=== PATIENT | male | born 1995 | race Caucasian/White ===

== ENCOUNTER 2019-10-27 20:49 | Emergency (ER) | payer OTHER ==
[~2019-10-27] VITALS: Ht 172.7 cm; Wt 95.2 kg
--- OUTSIDE RECORDS SUMMARY | ~2019-10-27 | XMS | Encounter Summary ---
Demographics + + + | Address | [address] | | | [place] [address] | + + + | Home Phone | | + + + | Preferred Language | Unknown | + + + | Marital Status | Single | + + + | Sabianism Affiliation | 1009 | + + + | Race | Unknown | + + + | Ethnic Group | Unknown | + + + Author + + + | Author | [facility] | | | and [place] | + + + | Organization | [facility] | | | and [place] | + + + | Address | Unknown | + + + | Phone | Unavailable | + + + Support + + + + + | Name | Relationship | Address | Phone | + + + + + | Fatmata Arce | ECON | [address] | | | | | [place] [address] | | + + + + + | Bogdan Arce | ECON | Unknown | | + + + + + Care Team Providers + +------+ + | Care Driller'S Assistant Name | Role | Phone | + +------+ + PCP | Unavailable | + +------+ + Encounter Details +--------+ + + + + | Date | Type | Department | Care Team | Description | +--------+ + + + + | 06/18/ | Hospital | [facility] | Phillip Ely, | | | 1997 | Encounter | [facility] | MD [facility] Dept[facility] of | | | | | EMERGENCY CENTER | Emergency Medicine | | | | | [address] | [place] [address] | | | | | [place], [place] | [phone] | | | | | [address] | | | | | | [phone] | | | +--------+ + + + + Social History + +-------+ +--------+------+ | Tobacco Use | Types | Packs/Day | Years | Date | | | | | Used | | + +-------+ +--------+------+ | Never Assessed | | | | | + +-------+ +--------+------+ + + + | Sex Assigned at | Date Recorded | | | | + + + | Not on file | | + + + documented as of this encounter Plan of Treatment +--------+---------+ + + + | Date | Type | Specialty | Care Team | Description | +--------+---------+ + + + | 11/04/ | Office | Family Medicine | Davy Mosqueda, | | | 2019 | Visit | | [facility] [address] | | | | | [address] | | | | | | [place] | | | | | | [address] | | | | | | [phone] | | | | | | | | +--------+---------+ + + + | 12/01/ | Office | Pulmonology | Miguel Angel Mayer MD | | | 2019 | Visit | | [address] | | | | | | [place] | | | | | | [address] | | | | | | | | +--------+---------+ + + + documented as of this encounter Visit Diagnoses Not on filedocumented in this encounter"
--- OUTSIDE RECORDS SUMMARY | ~2019-10-27 | XMS | Clinical Summary ---
Demographics + + + | Address | [address] | | | [place] [address] | + + + | Home Phone | | + + + | Preferred Language | Unknown | + + + | Marital Status | Single | + + + | Buddhist Affiliation | NON | + + + | Race | White | + + + | Ethnic Group | Not or | + + + Author + + + | Organization | Unknown | + + + | Address | Unknown | + + + | Phone | Unavailable | + + + Care Team Providers + +------+ + | Care Busboy Name | Role | Phone | + +------+ + PCP | Unavailable | + +------+ + Source Comments [facility] is fully live on both [facility] and [facility] Allergies Not on File Medications Not on file Active Problems Not on file Social History + +-------+ +--------+------+ | Tobacco [...] on file | | + + + + + + + | Job Start Date | Occupation | Industry | + + + + | Not on file | Not on file | Not on file | + + + + + + + + | Travel History | Travel Start | Travel End | + + + + + + | No recent travel history available. | + + Last Filed Vital Signs Not on file Plan of Treatment + + + + + | Health Maintenance | Due Date | Last Done | Comments | + + + + + | Influenza (Flu) | | | | | vaccination (#1) | 9 | | | + + + + + | Pneumococcal | Aged Out | | No longer eligible | | vaccination | | | based on patient's | | | | | age to complete this | | | | | topic | + + + + + Results Not on filefrom Last 3 Months"
--- OUTSIDE RECORDS SUMMARY | ~2019-10-27 | XMS | Encounter Summary ---
Demographics + + + | Address | [address] | | | [place] [address] | + + + | Home Phone | | + + + | Preferred Language | Unknown | + + + | Marital Status | Single | + + + | Restorationism Affiliation | 1009 | + + + | Race | Unknown | + + + | Ethnic Group | Unknown | + + + Author + + + | Author | [facility] | | | and [place] | + + + | Organization | [facility] | | | and [...] | | | | | [place] [address] | | + + + + + | Bogdan Arce | ECON | Unknown | | + + + + + Care Team Providers + +------+ + | Care Grinder Operator Automatic Name | Role | Phone | + +------+ + PCP | Unavailable | + +------+ + Encounter Details +--------+ + + + + | Date | Type | Department | Care Team | Description | +--------+ + + + + | 05/04/ | Hospital | [facility] | | | | 1999 | Encounter | [facility] | | | | | | CENTER [address] | | | | | | [place] | | | | | | [address] | | | | | | [phone] | | | +--------+ + + + [...] | | 2019 | Visit | | [facility] [address] | | | | | | [address] | | | | | | [place] | | | | | | [address] | | | | | | [phone] | | | | | | | | +--------+---------+ + + + | 12/01/ | Office | Pulmonology | Miguel Angel Mayer MD | | | 2019 | Visit | | [facility] [address] | | | | | | [place] | | | | | | [address] | | | | | | | | +--------+---------+ + + + documented as of this encounter Visit Diagnoses Not on filedocumented in this encounter"
--- OUTSIDE RECORDS SUMMARY | ~2019-10-27 | XMS | Encounter Summary ---
Demographics + + + | Address | [address] | | | [place] [address] | + + + | Home Phone | | + + + | Preferred Language | Unknown | + + + | Marital Status | Single | + + + | Yazdanism Affiliation | [id number] | + + + | Race | Unknown | + + + | Ethnic Group | Unknown | + + + Author + + + | Author | [facility] | | | and [place] | + + + | Organization | [facility] | | | [...] | | | | | [place] [address] | | + + + + + | Bogdan Arce | ECON | Unknown | | + + + + + Care Team Providers + +------+ + | Care Energy Auditor Name | Role | Phone | + +------+ + PCP | Unavailable | + +------+ + Encounter Details +--------+ + + + + | Date | Type | Department | Care Team | Description | +--------+ + + + + | 07/05/ | Emergency | [facility] | AshwinRichardson DO | Acute nonintractable | | 2018 | | [place] | [address] | headache, | | | | [facility] | [address], | unspecified headache | | | | [address] | [place] [address] | type | | | | [place] | [phone] | | | | | [address] | | | | | | [phone] | | | +--------+ + + + [...] + + documented as of this encounter Last Filed Vital Signs + + + + + | Vital Sign | Reading | Time Taken | Comments | + + + + + | Blood Pressure | 116/70 | 07/05/2017 3:13 PM | | | | | PDT | | + + + + + | Pulse | 98 | 07/05/2017 3:13 PM | | | | | PDT | | + + + + + | Temperature | 36.7 C (98.1 F) | 07/05/2017 3:13 PM | | | | | PDT | | + + + + + | Respiratory Rate | 16 | 07/05/2017 3:13 PM | | | | | PDT | | + + + + + | Oxygen Saturation | - | - | | + + + + + | Inhaled Oxygen | - | - | | | Concentration | | | | + + + + + | Weight | 91.5 kg (201 lb 11.5 | 07/05/2017 3:13 PM | | | | oz) | PDT | | + + + + + | Height | 172.7 cm (5' 8") | 07/05/2017 3:13 PM | | | | | PDT | | + + + + + | Body Mass Index | 30.67 | 07/05/2017 3:13 PM | | | | | PDT | | + + + + + documented in this encounter Medications at Time of Discharge + + + +---------+ + + | Medication | Sig | Dispensed | Refills | Start | End Date | | | | | | Date | | + + + +---------+ + + | fluticasone | 1 spray by Each Nare | | 0 | 07/06/19 | | | (FLONASE) 50 | route daily for 10 | | | 18 | | | mcg/nasal spray | days. | | | | | + + + +---------+ + + documented as of this encounter ED Notes Gabbie Matt PA - 07/05/2017 12:57 PM PDT ED Provider Notes by Gabbie Matt PA-C at 07/05/17 1257 Author: Gabbie Matt PA-C Service: Emergency Department Author Type: Physician As sistant - Certified Filed: 07/05/17 1845 Date of Service: 07/05/17 1257 Status: Attested Belling Machine Operator: Gabbie Matt PA-C (Physician Stone Derrickman And Rigger - Certified) Cosigner: Richardson louis DO at 07/05/17 Attestation signed by Richardson Christopher DO at 07/05/17 252 I was personally available for consultation. We have discussed the case and I was involved in the medical decision making process. I have reviewed the charting and agree with the as sessment, treatment plan, and disposition of the patient as recorded by the P. Procedures [facility] EMERGENCY DEPARTMENT IN [place] History of Present Illness Patient Identification Armin Arce is a 22 y.o. male. Patient information was obtained from patient. History/Exam limitations: none. Patient presented to the Emergency Department by: Car Chief Complaint Chief Complaint Patient presents with Headache 8 days Patient is a 22 y.o. male with a history of concussion and family history of brain aneurysm s complains of headache. Onset of symptoms was the days ago, with a worsening course since t hat time. The symptoms are described to be of moderate severity. The patient describes the quality and location of the symptoms as the following: bilateral frontal bandlike tension he adache. Patient stated he felt he has a tension headache but this one has been consistent. Patient stated he notices his headache most when he is not at work or having anything else t o do. Rated pain 4/10. Care prior to arrival consisted of nothing. Patient reports that both his father and grandfather had brain aneurysms in her 30s. Patient denied his headache bein g setting onset or the worst headache of his life. Denied caffeine intake. Denied recent chi ropractic adjustments or trauma. The patient also complains of slight upper muscular neck pain. Patient also complains of lopez btle lightheadedness occasionally. Significant PMH includes: Family history of brain aneurysms. Concussion. See below. Denied head injury, visual changes, blurred vision, trauma, fall, tinnitus, hearing loss, r melany, fever, chills, neck stiffness. abdominal pain, nausea, vomiting, dysuria, hematuria, fr equency, urgency, urinary retention, diarrhea, constipation, hemoptysis, chest pain, pleurit ic chest pain, cough, shortness of breath, palpitations, bloody stool, bloody emesis. Past Medical History Diagnosis Date Asthma Allergy induced Concussion several Muscle tear History reviewed. No pertinent surgical history. Prior to Admission medications Not on File No Known Allergies Social History Social History Marital status: Single Spouse name: N/A Number of children: N/A Years of education: N/A Occupational History Not on file. Social History Main Topics Smoking status: Never Smoker Smokeless tobacco: Never Used Alcohol use No Drug use: No Sexual activity: No Other Topics Concern Not on file Social History Narrative Pt lives with Mother Fatmata Arce. Pt's father is Bogdan Arce. Pt has one sibling Tamera Arce (09/05/00). History reviewed. No pertinent family history. ROS Review of Systems Constitutional: Negative for: fever, chills, fatigue, sweats, weight loss, loss of appe tite Positive for: headache, lightheadedness (resolved) Eyes: Negative for: decreased vision, irritated eyes, change in vision Nose: Negative for: nosebleed, congestion Throat: Negative for: mouth sores, sore throat Cardiovascular/Respiratory: Negative for: chest pain, shortness of breath, cough Gastrointestinal: Negative for: abdominal pain, vomiting, diarrhea, black or bloody stools Genitourinary: Negative for: dysuria, hematuria, urinary problems, frequency Musculoskeletal: Positive for: neck pain Skin: Negative for: laceration or lesion Neuro and psych: Negative for: fainting, head injury, trouble walking, seizure Endocrine/Heme/Lymph: Negative for: swollen lymph nodes, easy bruising Physical Exam Vitals: 07/05/17 1513 BP: 116/70 Pulse: 98 Resp: 16 Temp: SpO2: 97% Vitals: 07/05/17 1300 07/05/17 1408 07/05/17 1513 BP: (!) 132/97 111/73 116/70 BP Location: Right upper arm Right upper arm Right upper arm Pulse: 98 87 98 Resp: 18 16 16 Temp: 98.1 F (36.7 C) TempSrc: Oral SpO2: 98% 98% 97% Weight: 91.5 kg (201 lb 11.5 oz) Height: 1.727 m (5' 8") Pulse Oximetry interpretation: Normal General Statement: Alert, oriented, cooperative and in no apparent distress Skin: Skin warm and dry, no rashes, lesions, ulcerations. Capillary refill is <2 seconds Head: Skull symmetrical without lesions. Scalp without tenderness or lesions. No temporal a rtery tenderness bilaterally. Eyes: Conjunctiva and sclera are clear. EOMs intact and full. Non-icteric. PERRL. Ears: Auricles no lesions, masses, or tenderness. Canals no erythema or discharge. TMs intact, light reflex and bony landmarks present. No hemotympanum. Nose and Sinuses: Nose normal with septum midline. Mucosa pink and moist, without discharge , lesions. No frontal or maxillary sinus tenderness. Mouth and Throat: Buccal mucosa pink and moist without lesions. Uvula midline and rises waqas nly. Pharynx without erythema, edema, or tonsillar enlargement. Neck: Symmetrical. Trachea midline. No lymphadenopathy. No neck stiffness or tenderness of spinous processes. Minimal tenderness to upper paraspinous cervical musculature. No meningis mus Chest/Lungs: Quiet, regular respirations. Clear to auscultation in all lung jones. No whee zes, rhonchi, rales, stridor. No retractions or use of accessory muscles. Heart/Peripheral Vasculature: Regular rate and rhythm. No murmurs noted. Lower extremities without edema or calf tenderness. Pulses 2+ bilaterally - radial Abdomen: Bowel sounds present in all quadrants. Soft, non-distended, non-tender. No rebound tenderness or guarding. No CVA tenderness. Musculoskeletal: Symmetric without erythema, edema, effusion, or deformity in upper and low er extremities. Full active ROM in upper and lower extremities. Muscle strength is 5/5 bila terally in upper and lower extremities. Neurovascularly intact bilaterally. Back: Symmetric without erythema or deformity. No tenderness to palpation of spinous proce sses or paraspinous musculature. Full active ROM of back. Neurological/Psych: Gait and stance are normal. CN II-XII intact with no focal deficits. D TRs are 2+ bilaterally - patellar. No sensory deficit. Cvoksk-nr-bfrs and mojk-mbgf-cnmf mo vements are fluid bilaterally. Rapid alternating movements are intact bilaterally in upper a nd lower extremities. Romberg testing is negative. Able to walk on tip toes and heels with n o difficulties. Genitourinary: Deferred Rectal: Deferred Medical Decision Making and Emergency Department Course ED Department Course 1257: Examined and spoke to the patient with a history of concussion and family history of brain aneurysms complains of headache. DDx was discussed with patient including but not limited to: Intracranial mass/hemorrhage, brain aneurysm, primary headaches including tension, migraine, or cluster, sinusitis, among others. Due to the patient's family history of brain aneurysms I believe a CT is warranted. Discussed a plan of labs and CTA to r/o serious or life threatening conditions. I discussed with the patient the risks versus benefits of the CT scan. He indicated understanding and c onsented to CT scan. He stated he did not come to the emergency Department for his symptoms he stated he was concerned because of his family history of brain aneurysms. Will give Tylen ol, Benadryl, IV fluids, Reglan for pain relief. 1355: Labs resulted. No acute abnormalities. 1453: CT resulted. 1. No aneurysm or acute/active vascular lesion 2. 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 Left maxillary sinus disease which may be contributory to some symptoms/headache Patient is not experiencing any dysphasia. I consulted Dr. Christopher in regards to this patient and he is in agreement with plan. 1510: Patient on reevaluation stated he is feeling much better. Discussed diagnostic and la b tests with patient in detail. Discussed the clinical impression with the patient and answe red all questions and concerns. Patient indicated understanding. Discussed symptomatic care . Discussed with the patient what would necessitate a return to the ED. Patient was in agre ement with treatment and discharge plan. Thank you Dr. Christopher for your consult with this patient. Records Reviewed Nursing notes. Labs & Radiology Results Laboratory Evaluation Results Procedure Component Value Ref Range Date/Time Comprehensive metabolic panel [[id number]] Collected: 07/05/17 1332 Order Status: Completed Specimen: Blood Updated: 07/05/17 1355 SODIUM 141 135 - 145 mmol/L POTASSIUM 4.2 3.5 - 4.9 mmol/L CHLORIDE 103 99 - 109 mmol/L CO2 29 23 - 32 mmol/L ANION GAP AGAP 13 5 - 20 mmol/L GLUCOSE 82 65 - 99 mg/dL BUN 13 8 - 25 mg/dL CREATININE 1.08 0.70 - 1.30 mg/dL BUN/CREAT 12 CALCIUM 9.1 8.5 - 10.5 mg/dL TOTAL PROTEIN 7.6 6.3 - 8.2 g/dL Albumin 3.9 3.6 - 5.0 g/dL GLOBULIN 3.7 1.3 - 4.9 g/dL A/G 1.1 1.0 - 2.4 TBIL 0.8 0.1 - 1.5 mg/dL ALK PHOS 94 35 - 115 U/L AST 22 10 - 45 U/L ALT 54 10 - 65 U/L EGFR >60 >60 mL/min/1.73m2 CBC with differential [[id number]] (Abnormal) Collected: 07/05/17 1332 Order Status: Completed Specimen: Blood Updated: 07/05/17 1341 WBC 5.89 3.80 - 11.00 K/uL RBC 5.29 4.20 - 5.70 M/uL HGB 16.7 13.2 - 17.0 g/dL HCT 48.8 39.0 - 50.0 % MCV 92.2 80.0 - 100.0 fl MCH 31.6 27.0 - 34.0 pg MCHC 34.3 32.0 - 35.5 g/dL RDW SD 41.1 37 - 53 fl PLT 217 150 - 400 K/uL MPV 7.5 fl DIFF TYPE AUTOMATED NEUTROPHILS 48.53 % LYMPHOCYTES 34.41 % MONOCYTES 7.64 % EOSINOPHILS 8.68 % BASOPHILS 0.74 % NEUTROPHILS ABS 2.86 1.90 - 7.40 K/uL LYMPHOCYTES ABS 2.03 1.00 - 3.90 K/uL MONOCYTES ABS 0.45 0.00 - 0.80 K/uL EOSINOPHILS ABS 0.51 (H) 0.00 - 0.50 K/uL BASOPHILS ABS 0.04 0.00 - 0.10 K/uL Radiology and EKG Evaluation Imaging Results CTA Head and Neck (Final result) Result time 07/05/17 14:53:46 Final result by Dhruv Rodriguez MD (07/05/17 14:53:46) Impression: 1. No aneurysm or acute/active vascular lesion 2. 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 Left maxillary sinus disease which may be contributory to some symptoms/headache Narrative: HISTORY: 22 year-old male with headache. Family history of aneurysms. TECHNIQUE: CT angiogram of head and neck post the uneventful administration of 100cc of Iso kassandra 370. Multiplanar MIPS, sagittal and coronal reconstructions through the major vascular t erritories and branch vessels of the head, with reconstructions of the otoe-[place] of Lilly. Pre contrast and delayed venous phase imaging through the head. Automatic exposure control for purposes of dose reduction was performed as per protocol at this institution Prior examination : none similar FINDINGS: Transition Social Worker : Is noncontributory findings, but there is a fixation plate of the mid diaphysis of the right humerus Precontrast and delayed post contrast imaging through the head reveals no intracranial lesi on, mass effect or hydrocephalus. No hemorrhage. Postcontrast imaging demonstrates normal opacification major dural sinuses and parenchyma-w ithout abnormally enhancing dural or parenchymal lesion Bone windows: Near-complete opacification of the left maxillary sinus by a mildly extensive soft tissue. The nasal septum though tracks to the left which is probably congenital. Mild mucosal thickening of ethmoid air cells. The other paranasal sinuses are clear and normally pneumatized No calvarial lesion or fracture. Middle ears and mastoids-auditory canals-all clear Cervical spine is normal Lung apices are clear. Incidental notation made of an aberrant right subclavian artery behind the esophagus Soft tissue windows of the neck reveal a normal midline airway. Normal thyroid. No adenopat hy by size criteria. Only subthreshold lymph tissue in common and symmetric distributions CT ANGIOGRAM DEMONSTRATES: Three-vessel configuration the arch with aberrant right subclavi an artery with local mass effect in the esophagus. No subclavian or vertebral artery stenosi s at the origin. The bilateral internal and carotid arteries are symmetric and normal. 0% stenosis by NASCET Intracranial circulation reveals symmetry and wide patency of the carotid siphons. Slightly left dominant vertebral basilar system without evidence of aneurysm. Normal branch vessels. Small bilateral posterior communicating arteries are both intact. The bilateral M1 vessels and arborizations are normal without aneurysm, vascular cutoff sig n or lesion. No stenosis. The A1 and A2 segments are symmetric and there is anterior communi cation demonstrated Diagnosis & Disposition ED Diagnosis Final diagnosis Acute nonintractable headache, unspecified headache type The following medications were given to the patient while in the Emergency Department Medications sodium chloride (PF) 0.9 % flush 10 mL (not administered) sodium chloride (bolus) 0.9 % 1,000 mL (0 mLs Intravenous Stopped 07/05/17 1409) acetaminophen (TYLENOL) tablet 1,000 mg (1,000 mg Oral Given 07/05/17 1323) metoclopramide (REGLAN) injection 10 mg (10 mg Intravenous Given 07/05/17 1332) diphenhydrAMINE (BENADRYL) injection 25 mg (25 mg Intravenous Given 07/05/17 1332) iopamidol (ISOVUE-370) 76 % injection 100 mL (100 mLs Intravenous Given 07/05/17 1426) Disposition: ED Disposition ED Disposition Condition Comment Discharge Good Follow-up Information Follow up With Specialties Details Why Contact Info [facility] MD Joey Schedule an appointment as soon as possible for a visit [address] [facility] [address] [facility] Emergency Department in [place] Emergency Medicine Go to If symptoms worsen [address] [facility] [address] Discharge Medications: There are no discharge medications for this patient. This document has been prepared with a voice recognition system. The possibility of "sound alike" excel vba developer errors, addition and/or deletions may occur. If there is any question p lease contact the author of the document. Gabbie Matt PA-C 07/05/17 4326 Richardson Christopher DO 07/05/17 0091 documented in thi s encounter Plan of Treatment +--------+---------+ + + + | Date | Type | Specialty | Care Team | Description | +--------+---------+ + + + | 11/04/ | Office | Family Medicine | Davy Mosqueda, | | | 2019 | Visit | | [employer] [employer] [address] | | | | | | [address] | | | | | | [place] | | | | | | [address] | | | | | | [phone] | | | | | | | | +--------+---------+ + + + | 12/01/ | Office | Pulmonology | Miguel Angel Mayer MD | | | 2019 | Visit | | [address] | | | | | | [place] | | | | | | [address] | | | | | | | | +--------+---------+ + + + documented as of this encounter Procedures + +--------+ + + + | Procedure Name | Priori | Date/Time | Associated Diagnosis | Comments | | | ty | | | | + +--------+ + + + | CT ANGIOGRAM HEAD | Routin | 07/05/2017 | | Results for this | | NECK W CONTRAST | e | 2:37 PM | | procedure are in the | | | | PDT | | results section. | + +--------+ + + + | EXTERNAL LAB: CBC | Routin | 07/05/2017 | | Results for this | | | e | 1:32 PM | | procedure are in the | | | | PDT | | results section. | + +--------+ + + + | COMPREHENSIVE | Routin | 07/05/2017 | | Results for this | | METABOLIC PANEL | e | 1:32 PM | | procedure are in the | | | | PDT | | results section. | + +--------+ + + + documented in this encounter Results CT Angiogram Head and Neck w Contrast (07/05/2017 2:37 PM PDT) + + | Specimen | + + | | + + + + + | Impressions | Performed At | + + + | 1. No aneurysm or acute/active vascular lesion 2. Angiogram | | | reveals an aberrant right subclavian artery which could be associated | | | with dysphagia given the mass effect and esophagus 3. Left | | | maxillary sinus disease which may be contributory to some | | | symptoms/headache | | + + + + + + | Narrative | Performed At | + + + | HISTORY: 22 year-old male with headache. Family history of | | | aneurysms. TECHNIQUE: CT angiogram of head and neck post the | | | uneventful administration of 100cc of Isovue 370. Multiplanar MIPS, | | | sagittal and coronal reconstructions through the major vascular | | | territories and branch vessels of the head, with reconstructions of | | | the otoe-[place] of Lilly. Precontrast and delayed venous phase imaging | | | through the head. Automatic exposure control for purposes of dose | | | reduction was performed as per protocol at this institution Prior | | | examination : none similar FINDINGS: Transition Social Worker : Is | | | noncontributory findings, but there is a fixation plate of the mid | | | diaphysis of the right humerus Precontrast and delayed post | | | contrast imaging through the head reveals no intracranial lesion, mass | | | effect or hydrocephalus. No hemorrhage. Postcontrast imaging | | | demonstrates normal opacification major dural sinuses and | | | parenchyma-without abnormally enhancing dural or parenchymal lesion | | | Bone windows: Near-complete opacification of the left maxillary | | | sinus by a mildly extensive soft tissue. The nasal septum though | | | tracks to the left which is probably congenital. Mild mucosal | | | thickening of ethmoid air cells. The other paranasal sinuses are | | | clear and normally pneumatized No calvarial lesion or fracture. | | | Middle ears and mastoids-auditory canals-all clear Cervical spine | | | is normal Lung apices are clear. Incidental notation made of | | | an aberrant right subclavian artery behind the esophagus Soft | | | tissue windows of the neck reveal a normal midline airway. Normal | | | thyroid. No adenopathy by size criteria. Only subthreshold lymph | | | tissue in common and symmetric distributions CT ANGIOGRAM | | | DEMONSTRATES: Three-vessel configuration the arch with aberrant right | | | subclavian artery with local mass effect in the esophagus. No | | | subclavian or vertebral artery stenosis at the origin. The | | | bilateral internal and carotid arteries are symmetric and normal. 0% | | | stenosis by NASCET Intracranial circulation reveals symmetry and | | | wide patency of the carotid siphons. Slightly left dominant vertebral | | | basilar system without evidence of aneurysm. Normal branch vessels. | | | Small bilateral posterior communicating arteries are both intact. | | | The bilateral M1 vessels and arborizations are normal without | | | aneurysm, vascular cutoff sign or lesion. No stenosis. The A1 and A2 | | | segments are symmetric and there is anterior communication | | | demonstrated | | + + + + + | Procedure Note | + + | Sohan Pleitez Conversion - 10/28/2018 5:56 AM PDT HISTORY: 22 year-old male with | | headache. Family history of aneurysms. TECHNIQUE: CT angiogram of head and neck post the | | uneventful administration of 100cc of Isovue 370. Multiplanar MIPS, sagittal and | | coronal reconstructions through the major vascular territories and branch vessels of the | | head, with reconstructions of the otoe-[place] of Lilly. Precontrast and delayed venous | | phase imaging through the head. Automatic exposure control for purposes of dose | | reduction was performed as per protocol at this institution Prior examination : none | | similar FINDINGS: Transition Social Worker : Is noncontributory findings, but there is a fixation plate of | | the mid diaphysis of the right humerus Precontrast and delayed post contrast imaging | | through the head reveals no intracranial lesion, mass effect or hydrocephalus. No | | hemorrhage. Postcontrast imaging demonstrates normal opacification major dural sinuses | | and parenchyma-without abnormally enhancing dural or parenchymal lesion Bone windows: | | Near-complete opacification of the left maxillary sinus by a mildly extensive soft | | tissue. The nasal septum though tracks to the left which is probably congenital. Mild | | mucosal thickening of ethmoid air cells. The other paranasal sinuses are clear and | | normally pneumatized No calvarial lesion or fracture. Middle ears and mastoids-auditory | | canals-all clear Cervical spine is normal Lung apices are clear. Incidental notation | | made of an aberrant right subclavian artery behind the esophagus Soft tissue windows of | | the neck reveal a normal midline airway. Normal thyroid. No adenopathy by size criteria. | | Only subthreshold lymph tissue in common and symmetric distributions CT ANGIOGRAM | | DEMONSTRATES: Three-vessel configuration the arch with aberrant right subclavian artery | | with local mass effect in the esophagus. No subclavian or vertebral artery stenosis at | | the origin. The bilateral internal and carotid arteries are symmetric and normal. 0% | | stenosis by NASCET Intracranial circulation reveals symmetry and wide patency of the | | carotid siphons. Slightly left dominant vertebral basilar system without evidence of | | aneurysm. Normal branch vessels. Small bilateral posterior communicating arteries are | | both intact. The bilateral M1 vessels and arborizations are normal without aneurysm, | | vascular cutoff sign or lesion. No stenosis. The A1 and A2 segments are symmetric and | | there is anterior communication demonstrated IMPRESSION: 1. No aneurysm or acute/active | | vascular lesion 2. Angiogram reveals an aberrant right subclavian artery which could be | | associated with dysphagia given the mass effect and esophagus 3. Left maxillary sinus | | disease which may be contributory to some symptoms/headache | |The bilateral internal and carotid arteries are symmetric and normal. 0% stenosis by NASCET | | | |Intracranial circulation reveals symmetry and wide patency of the carotid siphons. Slightly left dominant vertebral basilar system without evidence of aneurysm. Normal branch vessels. Small bilateral posterior communicating arteries are both intact. | | | |The bilateral M1 vessels and arborizations are normal without aneurysm, vascular cutoff sig n or lesion. No stenosis. The A1 and A2 segments are symmetric and there is anterior communi cation demonstrated | | | |IMPRESSION: | | | |1. No aneurysm or acute/active vascular lesion | | | |2. 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 Left maxillary sinus disease which may be contributory to some symptoms/headache | | | | | | | | | | | + + External Lab: [facility] (07/05/2017 1:32 PM PDT) + + + + + + | Component | Value | Ref Range | Performed | Pathologist | | | | | At | Signature | + + + + + + | WBC | 5.89 | 3.80 - 11.00 | EXTERNAL | | | | | K/uL | LAB | | + + + + + + | Non- | 5.29 | 4.20 - 5.70 | EXTERNAL | | | Red Blood | | M/uL | LAB | | | Cells | | | | | | Counted | | | | | + + + + + + | Hemoglobin | 16.7 | 13.2 - 17.0 | EXTERNAL | | | | | g/dL | LAB | | + + + + + + | Hematocrit, | 48.8 | 39.0 - 50.0 % | EXTERNAL | | | POC | | | LAB | | + + + + + + | MCV | 92.2 | 80.0 - 100.0 fl | EXTERNAL | | | | | | LAB | | + + + + + + | MCH | 31.6 | 27.0 - 34.0 pg | EXTERNAL | | | | | | LAB | | + + + + + + | MCHC | 34.3 | 32.0 - 35.5 | EXTERNAL | | | | | g/dL | LAB | | + + + + + + | RDW-CV | 41.1 | 37 - 53 fl | EXTERNAL | | | | | | LAB | | + + + + + + | Platelet | 217 | 150 - 400 K/uL | EXTERNAL | | | Count | | | LAB | | | Plasma | | | | | + + + + + + | MPV | 7.5 | fl | EXTERNAL | | | | | | LAB | | + + + + + + | Differentia | AUTOMATED | | EXTERNAL | | | l Type | | | LAB | | + + + + + + | % Segmented | 48.53 | % | EXTERNAL | | | | | | LAB | | | Neutrophils | | | | | + + + + + + | % | 34.41 | % | EXTERNAL | | | Lymphocytes | | | LAB | | + + + + + + | % Monocytes | 7.64 | % | EXTERNAL | | | | | | LAB | | + + + + + + | % | 8.68 | % | EXTERNAL | | | Eosinophils | | | LAB | | + + + + + + | % Basophils | 0.74 | % | EXTERNAL | | | | | | LAB | | + + + + + + | Absolute | 2.86 | 1.90 - 7.40 | EXTERNAL | | | Segmented | | K/uL | LAB | | | Neutrophils | | | | | + + + + + + | Absolute | 2.03 | 1.00 - 3.90 | EXTERNAL | | | Lymphocytes | | K/uL | LAB | | + + + + + + | Absolute | 0.45 | 0.00 - 0.80 | EXTERNAL | | | Monocytes | | K/uL | LAB | | + + + + + + | Absolute | 0.51 (H) | 0.00 - 0.50 | EXTERNAL | | | Eosinophils | | K/uL | LAB | | + + + + + + | Absolute | 0.04Comment: Testing | 0.00 - 0.10 | EXTERNAL | | | Basophils | performed at [facility], [address] | | | | [address], | | | | | | [place] [id number] | | | | + + + + + + + + | Specimen | + + | Blood specimen | | (specimen) | + + + +---------+ + + | Performing | Address | City/State/Zipcode | Phone Number | | Organization | | | | + +---------+ + + | EXTERNAL LAB | | | | + +---------+ + + Comprehensive Metabolic Panel (07/05/2017 1:32 PM PDT) + + + + + + | Component | Value | Ref Range | Performed | Pathologist | | | | | At | Signature | + + + + + + | Na | 141 | 135 - 145 | EXTERNAL | | | | | mmol/L | LAB | | + + + + + + | K | 4.2 | 3.5 - 4.9 | EXTERNAL | | | | | mmol/L | LAB | | + + + + + + | Cl | 103 | 99 - 109 mmol/L | EXTERNAL | | | | | | LAB | | + + + + + + | CO2 | 29 | 23 - 32 mmol/L | EXTERNAL | | | | | | LAB | | + + + + + + | Anion Gap | 13 | 5 - 20 mmol/L | EXTERNAL | | | | | | LAB | | + + + + + + | Glucose, | 82 | 65 - 99 mg/dL | EXTERNAL | | | Fasting | | | LAB | | + + + + + + | BUN | 13 | 8 - 25 mg/dL | EXTERNAL | | | | | | LAB | | + + + + + + | Creatinine | 1.08 | 0.70 - 1.30 | EXTERNAL | | | | | mg/dL | LAB | | + + + + + + | BUN/Creatin | 12 | | EXTERNAL | | | ine Ratio | | | LAB | | + + + + + + | Calcium | 9.1 | 8.5 - 10.5 | EXTERNAL | | | | | mg/dL | LAB | | + + + + + + | Protein, | 7.6 | 6.3 - 8.2 g/dL | EXTERNAL | | | Total | | | LAB | | + + + + + + | Albumin | 3.9 | 3.6 - 5.0 g/dL | EXTERNAL | | | | | | LAB | | + + + + + + | Globulin | 3.7 | 1.3 - 4.9 g/dL | EXTERNAL | | | | | | LAB | | + + + + + + | A/G Ratio | 1.1 | 1.0 - 2.4 | EXTERNAL | | | | | | LAB | | + + + + + + | Bilirubin | 0.8 | 0.1 - 1.5 mg/dL | EXTERNAL | | | Total | | | LAB | | + + + + + + | ALP, | 94 | 35 - 115 U/L | EXTERNAL | | | External | | | LAB | | + + + + + + | AST | 22 | 10 - 45 U/L | EXTERNAL | | | | | | LAB | | + + + + + + | ALT | 54 | 10 - 65 U/L | EXTERNAL | | | | | | LAB | | + + + + + + | Estimated | >60Comment: GFR <60: | mL/min/1.73m2 | EXTERNAL | | | GFR | CHRONIC KIDNEY DISEASE, | | LAB | | | | IF FOUND OVER A 3 MONTH | | | | | | PERIOD.GFR <15: KIDNEY | | | | | | FAILURE.FOR | | | | | | AMERICANS, MULTIPLY THE | | | | | | CALCULATED GFR BY | | | | | | 1.210.Testing performed | | | | | | at [facility], [address] | [address] [place] | | | | | | [id number] | | | | + + + + + + + + | Specimen | + + | Blood specimen | | (specimen) | + + + +---------+ + + | Performing | Address | City/State/Zipcode | Phone Number | | Organization | | | | + +---------+ + + | EXTERNAL LAB | | | | + +---------+ + + documented in this encounter Visit Diagnoses + + | Diagnosis | + + | Acute nonintractable headache, unspecified headache type | + + documented in this encounter
--- OUTSIDE RECORDS SUMMARY | ~2019-10-27 | XMS | Encounter Summary ---
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 LABORATORY | | + + + + + + | Hematocrit | 35.0 (L) | 37.0 - 49.0 % | [facility] | | | | [facility] | | | | | [facility] | | | | | | [facility] | | | | | | [facility]ENTER | | | | | | LABORATORY | | + + + + + + | MCV | 91.6 | 78.0 - 98.0 fL | [facility] | | | | | | [facility] | | | | | | [facility] | | | | | | [facility] | | | | | | CENTER | | | | | | LABORATORY | | + + + + + + | MCH | 31.3 | 25.0 - 35.0 pg | [facility] | | | | [facility] | | | | | [facility] | | | | | | [facility] | | | | | | [facility]ENTER | | | | | | LABORATORY | | + + + + + + | MCHC | 34.2 | 31.0 - 37.0 | [facility] | | | | | g/dL | [facility] | | | | | | [facility] | | | | | | [facility] | | | | | | CENTER | | | | | | LABORATORY | | + + + + + + | RDW-CV | 12.5 | 11.0 - 14.5 % | [facility] | | | | | [facility] | | | | | [facility] | | | | | | [facility] | | | | | | [facility]ENTER | | | | | | LABORATORY | | + + + + + + | Platelet | 519 (H) | 150 - 450 K/uL | [facility] | | | Count | | | [facility] | | | | | | [facility] | | | | | | [facility]ICAL | | | | | | CENTER | | | | | | LABORATORY | | + + + + + + + + | Specimen | + + | | + + + + + + + | Performing | Address | City/State/Zipcode | Phone Number | | Organization | | | | + + + + + | [facility] | [address] | [place] [address] | | | [facility] | | | | | LABORATORY | | | | + + + + + | [facility] | | | | | [facility] | | | | | LAB[facility]ATORY | | | | + + + + + Sedimentation Rate (09/29/2011 6:23 AM PDT) + +--------+ + + + | Component | Value | Ref Range | Performed | Pathologist | | | | | At | Signature | + +--------+ + + + | Erythrocyte | 64 (H) | 0 - 10 mm/h | [facility] | | | | [facility] | | | Sedimentati | | | HEART | | | on Rate | | | MEDICAL | | | | | | CENTER | | | | | | LABORATORY | | + +--------+ + + + + + | Specimen | + + | | + + + + + + + | Performing | Address | City/State/Zipcode | Phone Number | | Organization | | | | + + + + + | [facility] | [address] | [place] [address] | | | [facility] | | | | | LABORATORY | | | | + + + + + | [facility] | | | [facility] | | | | | LAB[facility]ORY | | | | + + + + + Retic Count (09/29/2011 6:23 AM PDT) + +-------+ + + + | Component | Value | Ref Range | Performed | Pathologist | | | | | At | Signature | + +-------+ + + + | % | 1.0 | 0.4 - 2.7 % | [facility] | | | Reticulocyt | | | [facility] | | | e Count | | | HEART | | | | | | MEDICAL | | | | | | CENTER | | | | | | LABORATORY | | + +-------+ + + + | Absolute | 38 | 16 - 123 K/uL | [facility] | | | Reticulocyt | | | [facility] | | | e Count | | | HEART | | | | | | MEDICAL | | | | | | CENTER | | | | | | LABORATORY | | + +-------+ + + + | Immature | 0.39 | 0.17 - 0.43 | [facility] | | | Reticulocyt | | | [facility] | | | e Fraction | | | HEART | | | | | | MEDICAL | | | | | | CENTER | | | | | | LABORATORY | | + +-------+ + + + + + | Specimen | + + | | + + + + + + + | Performing | Address | City/State/Zipcode | Phone Number | | Organization | | | | + + + + + | [facility] | [address] | [place] [address] | | | [facility] | | | | | LABORATORY | | | | + + + + + | [facility] | | | | | [facility] | | | | | LAB[facility]ATORY | | | | + + + + + CBC with Differential (09/29/2011 6:23 AM PDT) + + + + + + | Component | Value | Ref Range | Performed | Pathologist | | | | | At | Signature | + + + + + + | White Blood | 5.2 | 4.5 - 11.0 K/uL | [facility] | | | Cells | | | [facility] | | | | | | [facility] | | | | | | MEDICAL | | | | | | CENTER | | | | | | LABORATORY | | + + + + + + | Red Blood | 3.71 (L) | 4.50 - 5.30 | [facility] | | | Cells | | M/uL | [facility] | | | | | | HE[facility] | | | | | | MEDICAL | | | | | | CENTER | | | | | | LABORATORY | | + + + + + + | Hemoglobin | 11.5 (L) | 13.0 - 16.0 | [facility] | | | | | g/dL | [facility] | | | | | | [facility] | | | | | | MEDICAL | | | | | | CENTER | | | | | | LABORATORY | | + + + + + + | Hematocrit | 34.6 (L) | 37.0 - 49.0 % | [facility] | | | | | | [facility] | | | | | | [facility] | | | | | | MED[facility] | | | | | | CENTER | | | | | | LABORATORY | | + + + + + + | MCV | 93.4 | 78.0 - 98.0 fL | [facility] | | | | | | [facility] | | | | | | [facility] | | | | | | MED[facility] | | | | | | CENTER | | | | | | LABORATORY | | + + + + + + | MCH | 30.9 | 25.0 - 35.0 pg | [facility] | | | | | | [facility] | | | | | | [facility] | | | | | | MEDICAL | | | | | | CENTER | | | | | | LABORATORY | | + + + + + + | MCHC | 33.1 | 31.0 - 37.0 | [facility] | | | | | g/dL | [facility] | | | | | | HE[facility] | | | | | | MEDICAL | | | | | | CENTER | | | | | | LABORATORY | | + + + + + + | RDW-CV | 12.5 | 11.0 - 14.5 % | [facility] | | | | | | [facility] | | | | | | [facility] | | | | | | MEDICAL | | | | | | CENTER | | | | | | LABORATORY | | + + + + + + | Platelet | 492 (H) | 150 - 450 K/uL | [facility] | | | Count | | | [facility] | | | | | | HE[facility] | | | | | | MEDICAL | | | | | | CENTER | | | | | | LABORATORY | | + + + + + + | % | 44.0 | 40.0 - 74.0 % | [facility] | | | Neutrophils | | | [facility] | | | | | | HE[facility] | | | | | | MEDICAL | | | | | | CENTER | | | | | | LABORATORY | | + + + + + + | % | 40.7 | 20.0 - 50.0 % | [facility] | | | Lymphocytes | | | [facility] | | | | | | HE[facility] | | | | | | MEDICAL | | | | | | CENTER | | | | | | LABORATORY | | + + + + + + | % Monocytes | 7.0 | 1.0 - 9.0 % | [facility] | | | | | | [facility] | | | | | | [facility] | | | | | | MEDICAL | | | | | | CENTER | | | | | | LABORATORY | | + + + + + + | % | 7.6 (H) | 0.0 - 7.0 % | [facility] | | | Eosinophils | | | [facility] | | | | | | HE[facility] | | | | | | MEDICAL | | | | | | CENTER | | | | | | LABORATORY | | + + + + + + | % Basophils | 0.7 | 0.0 - 2.0 % | [facility] | | | | | | [facility] | | | | | | [facility] | | | | | | MEDICAL | | | | | | CENTER | | | | | | LABORATORY | | + + + + + + | Absolute | 2.29 | 1.80 - 8.00 | [facility] | | | Neutrophils | | K/uL | [facility] | | | | | | HE[facility] | | | | | | MEDICAL | | | | | | CENTER | | | | | | LABORATORY | | + + + + + + | Absolute | 2.12 | 1.20 - 5.20 | [facility] | | | Lymphocytes | | K/uL | [facility] | | | | | | HEART | | | | | | MEDICAL | | | | | | CENTER | | | | | | LABORATORY | | + + + + + + | Absolute | 0.37 | 0.20 - 0.60 | [facility] | | | Monocytes | | K/uL | [facility] | | | | | | HEART | | | | | | MEDICAL | | | | | | CENTER | | | | | | LABORATORY | | + + + + + + | Absolute | 0.40 | 0.00 - 0.50 | [facility] | | | Eosinophils | | K/uL | [facility] | | | | | | HE[facility] | | | | | | MEDICAL | | | | | | CENTER | | | | | | LABORATORY | | + + + + + + | Absolute | 0.04 | 0.00 - 0.10 | [facility] | | | Basophils | | K/uL | [facility] | | | | | | HEART | | | | | | MEDICAL | | | | | | CENTER | | | | | | LABORATORY | | + + + + + + | Differentia | Automated Differential | | [facility] | | | l Type | verified by slide | | [facility] | | | | review. | | HEART | | | | | | MEDICAL | | | | | | CENTER | | | | | | LABORATORY | | + + + + + + | RBC | Normal | | [facility] | | | Morphology | | | [facility] | | | | | | HEART | | | | | | MEDICAL | | | | | | CENTER | | | | | | LABORATORY | | + + + + + + | WBC | Normal | | [facility] | | | Morphology | | | [facility] | | | | | | HEART | | | | | | MEDICAL | | | | | | CENTER | | | | | | LABORATORY | | + + + + + + | Platelet | Increased | | [facility] | | | Morphology | | | [facility] | | | | | | HEART | | | | | | MEDICAL | | | | | | CENTER | | | | | | LABORATORY | | + + + + + + + + | Specimen | + + | | + + + + + + + | Performing | Address | City/State/Zipcode | Phone Number | | Organization | | | | + + + + + | [facility] | [address] [place] | [place] [address] | | | [facility] | | | | | LABORATORY | | | | + + + + + | [facility] | | | | | [facility] | | | | | LABORATORY | | | | + + + + + C-Reactive Protein (09/29/2011 6:23 AM PDT) + + + + + + | Component | Value | Ref Range | Performed | Pathologist | | | | | At | Signature | + + + + + + | CRP | 3.7 (H)Comment: This CRP | 0.0 - 1.5 mg/dL | [facility] | | | | assay is useful as a | | [facility] | | | | marker of acute | | HEART | | | | inflammation. For | | MEDICAL | | | | cardiac risk | | CENTER | | | | stratification order | | LABORATORY | | | | High Sensitive CRP, | | | | | | Order Code HCRP. | | | | + + + + + + + + | Specimen | + + | | + + + + + + + | Performing | Address | City/State/Zipcode | Phone Number | | Organization | | | | + + + + + | [facility] | [address] | [place] [address] | | | [facility] | | | | | LABORATORY | | | | + + + + + | [facility] | | | | | [facility] | | | | | LABORATORY | | | | + + + + + Comprehensive Metabolic Panel (09/29/2011 6:23 AM PDT) + + + + + + | Component | Value | Ref Range | Performed | Pathologist | | | | | At | Signature | + + + + + + | Na | 140 | 135 - 145 | [facility] | | | | | mmol/L | [facility] | | | | | | HEART | | | | | | MEDICAL | | | | | | CENTER | | | | | | LABORATORY | | + + + + + + | K | 4.2 | 3.5 - 5.0 | [facility] | | | | | mmol/L | [facility] | | | | | | HEART | | | | | | MEDICAL | | | | | | CENTER | | | | | | LABORATORY | | + + + + + + | Cl | 103 | 99 - 109 mmol/L | [facility] | | | | | | [facility] | | | | | | HEART | | | | | | MEDICAL | | | | | | CENTER | | | | | | LABORATORY | | + + + + + + | CO2 | 28 | 21 - 28 mmol/L | [facility] | | | | | | [facility] | | | | | | HEART | | | | | | MEDICAL | | | | | | CENTER | | | | | | LABORATORY | | + + + + + + | Glucose | 116 (H)Comment: [place] | 65 - 99 mg/dL | [facility] | | | | Diabetes Association | | [facility] | | | | diagnostic categories | | HEART | | | | for non adults: | | MEDICAL | | | | Impaired fasting | | CENTER | | | | glucose 100 to 125 | | LABORATORY | | | | mg/dL. A fasting | | | | | | glucose result of 126 | | | | | | mg/dL or greater | | | | | | indicates diabetes if | | | | | | the abnormality is | | | | | | confirmed on a | | | | | | subsequent day. A | | | | | | random glucose result of | | | | | | greater than 200 mg/dL | | | | | | indicates diabetes if | | | | | | the abnormality is | | | | | | confirmed on a | | | | | | subsequent day. | | | | + + + + + + | BUN | 12 | 8 - 25 mg/dL | [facility] | | | | | | [facility] | | | | | | HEART | | | | | | MEDICAL | | | | | | CENTER | | | | | | LABORATORY | | + + + + + + | Creatinine | 0.60 (L)Comment: IDMS | 0.70 - 1.30 | [facility] | | | | traceable creatinine | mg/dL | [facility] | | | | | | HEART | | | | | | MEDICAL | | | | | | CENTER | | | | | | LABORATORY | | + + + + + + | Calcium | 9.1 | 8.5 - 10.2 | [facility] | | | | | mg/dL | [facility] | | | | | | HEART | | | | | | MEDICAL | | | | | | CENTER | | | | | | LABORATORY | | + + + + + + | Total | 6.3 | 6.1 - 8.0 g/dL | [facility] | | | Protein | | | [facility] | | | | | | HEART | | | | | | MEDICAL | | | | | | CENTER | | | | | | LABORATORY | | + + + + + + | Albumin | 2.2 (L) | 3.3 - 4.7 g/dL | [facility] | | | | | | [facility] | | | | | | HEART | | | | | | MEDICAL | | | | | | CENTER | | | | | | LABORATORY | | + + + + + + | Bilirubin | 0.3 | <2.0 mg/dL | [facility] | | | Total | | | [facility] | | | | | | HEART | | | | | | MEDICAL | | | | | | CENTER | | | | | | LABORATORY | | + + + + + + | Alkaline | 116 | 53 - 186 U/L | [facility] | | | Phosphatase | | | [facility] | | | | | | HEART | | | | | | MEDICAL | | | | | | CENTER | | | | | | LABORATORY | | + + + + + + | AST | 37 | 14 - 40 U/L | [facility] | | | | | | [facility] | | | | | | HEART | | | | | | MEDICAL | | | | | | CENTER | | | | | | LABORATORY | | + + + + + + | ALT | 46 | 10 - 65 U/L | [facility] | | | | | | [facility] | | | | | | HEART | | | | | | MEDICAL | | | | | | CENTER | | | | | | LABORATORY | | + + + + + + | Anion Gap | 9 | 5 - 16 mmol/L | [facility] | | | | | | [facility] | | | | | | HEART | | | | | | MEDICAL | | | | | | CENTER | | | | | | LABORATORY | | + + + + + + | Estimated | Cannot calculate. | >60 | [facility] | | | GFR | | ml/min/1.73m2 | [facility] | | | | | | HEART | | | | | | MEDICAL | | | | | | CENTER | | | | | | LABORATORY | | + + + + + + + + | Specimen | + + | | + + + + + + + | Performing | Address | City/State/Zipcode | Phone Number | | Organization | | | | + + + + + | [facility] | [address] | [place] [address] | | | [facility] | | | | | LABORATORY | | | | + + + + + | [facility] | | | | | [facility] | | | | | LABORATORY | | | | + + + + + XR Chest PA or AP (09/28/2011 9:39 PM PDT) + + | Specimen | + + | | + + + + + | Narrative | Performed At | + + + | Exam Performed Location: [facility] AP CHEST | MISCELANIOUS | | RADIOGRAPH CLINICAL INFORMATION: Recheck position of tip of Picc | LAB | | line. Patient complains of palpitations with medication | | | administration. COMPARISON: 09/26/2011 PROCEDURE: AP chest | | | radiograph FINDINGS: Right upper extremity PICC line in the SVC. | | | Lungs remain clear. Cardiomediastinal contours are stable. No | | | acute osseous finding. Visualized portions of the upper abdomen are | | | unremarkable. IMPRESSION: 1. No acute cardiopulmonary process. | | | 2. Right upper extremity PICC line tip in SVC. | | | S: SQ ([id number]) Signed by: MASON FALK MD | | + + + + + | Procedure Note | + + | Maik, Rad Conversion - 01/06/2013 7:14 PM PDT Exam Performed [facility] | [facility] RADIOGRAPHCLINICAL INFORMATION:Recheck position of tip of Picc | | line. Patient complains ofpalpitations with medication | | administration.COMPARISON:09/26/2011PROCEDURE:AP chest radiographFINDINGS:Right upper | | extremity PICC line in the SVC. Lungs remain clear.Cardiomediastinal contours are | | stable. No acute osseous finding.Visualized portions of the upper abdomen are | | unremarkable.IMPRESSION:1. No acute cardiopulmonary process.2. Right upper extremity | | PICC line tip in SVC.S: SQ ([id number]) Signed by: MASON FALK MD | |COMPARISON: | |09/26/2011 | | | |PROCEDURE: | |AP chest radiograph | | | |FINDINGS: | |Right upper extremity PICC line in the SVC. Lungs remain clear. | |Cardiomediastinal contours are stable. No acute osseous finding. | |Visualized portions of the upper abdomen are unremarkable. | | | |IMPRESSION: | |1. No acute cardiopulmonary process. | |2. Right upper extremity PICC line tip in SVC. | | | | | | | | | | | | | | | | | | | |S: SQ ([id number]) Signed by: MASON FALK MD | + + + +---------+ + + | Performing | Address | City/State/Zipcode | Phone Number | | Organization | | | | + +---------+ + + | [facility] | | | [phone] | + +---------+ + + | MISC[facility] LAB | | | [phone] | + +---------+ + + XR Knee Left 1 - 2 Vw (09/27/2011 8:23 PM PDT) + + | Specimen | + + | | + + + + + | Narrative | Performed At | + + + | Exam Performed Location: [facility] LEFT | MISCELANIOUS | | KNEE TWO VIEWS CLINICAL INFORMATION: ? left knee effusion. | LAB | | Patient has history of left pelvic abscess. COMPARISON: None. | | | FINDINGS: No fracture or dislocation. No significant arthropathy | | | or soft tissue abnormalities. Normal bone mineralization. No | | | joint effusion. IMPRESSION: Negative left knee. No effusion. | | | S: SQ ([id number]) Signed by: RADHA RENE MD | | + + + + + | Procedure Note | + + | Maik, Rad Conversion - 01/06/2013 6:59 PM PDT Exam Performed Location: [facility] | | [facility] KNEE TWO VIEWSCLINICAL INFORMATION:? left knee effusion. Patient | | has history of left pelvic abscess.COMPARISON:None.FINDINGS:No fracture or dislocation. | | No significant arthropathy or softtissue abnormalities. Normal bone mineralization. | | No jointeffusion.IMPRESSION:Negative left knee. No effusion.S: SQ ([id number]) Signed by: | | RADHA RENE MD | | | |COMPARISON: | |None. | | | |FINDINGS: | |No fracture or dislocation. No significant arthropathy or soft | |tissue abnormalities. Normal bone mineralization. No joint | |effusion. | | | |IMPRESSION: | |Negative left knee. No effusion. | | | | | | | | | |S: SQ ([id number]) Signed by: RADHA RENE MD | + + + +---------+ + + | Performing | Address | City/State/Zipcode | Phone Number | | Organization | | | | + +---------+ + + | [facility] | | | [phone] | + +---------+ + + | MISC[facility] | | | [phone] | + +---------+ + + XR Chest PA or AP (09/26/2011 9:45 AM PDT) + + | Specimen | + + | | + + + + + | Narrative | Performed At | + + + | Exam Performed Location: [facility] CHEST 1 | MISCELANIOUS | | VW CLINICAL INFORMATION: Right PICC placement. COMPARISON: | LAB | | 09/26/2011 FINDINGS: New right upper extremity PICC line | | | terminates of the distal superior vena cava in standard position. | | | Cardiomediastinal contour is normal. Bronchovascular markings are | | | unremarkable. No focal airspace disease to suggest pneumonia. No | | | pneumothorax or pleural effusion. No significant adenopathy. | | | Osseous structures are unremarkable. IMPRESSION: 1. New | | | right upper extremity PICC line terminates of the distal superior | | | vena cava in standard position. 2. No significant interval | | | change and no acute cardiopulmonary disease. S: SQ ([id number]) | | | Signed by: SACHA STALLINGS MD | | + + + + + | Procedure Note | + + | Maik, Sohan Conversion - 01/06/2013 7:21 PM PDT Exam Performed Location: [facility] | | at [facility] 1 VWCLINICAL INFORMATION:Right PICC | | placement.COMPARISON:09/26/2011FINDINGS:New right upper extremity PICC line terminates | | of the distalsuperior vena cava in standard position.Cardiomediastinal contour is | | normal. Bronchovascular markings areunremarkable. No focal airspace disease to suggest | | pneumonia. Nopneumothorax or pleural effusion. No significant adenopathy.Osseous | | structures are unremarkable.IMPRESSION:1. New right upper extremity PICC line terminates | | of the distalsuperior vena cava in standard position.2. No significant interval change | | and no acute cardiopulmonarydisease.S: SQ ([id number]) Signed by: SACHA STALLINGS MD | | | |FINDINGS: | |New right upper extremity PICC line terminates of the distal | |superior vena cava in standard position. | | | |Cardiomediastinal contour is normal. Bronchovascular markings are | |unremarkable. No focal airspace disease to suggest pneumonia. No | |pneumothorax or pleural effusion. No significant adenopathy. | |Osseous structures are unremarkable. | | | | | | | |IMPRESSION: | | | |1. New right upper extremity PICC line terminates of the distal | |superior vena cava in standard position. | | | | | |2. No significant interval change and no acute cardiopulmonary | |disease. | | | | | |S: SQ ([id number]) Signed by: SACHA STALLINGS MD | + + + +---------+ + + | Performing | Address | City/State/Zipcode | Phone Number | | Organization | | | | + +---------+ + + | [facility] | | | [phone] | + +---------+ + + | MISC[facility] | | | [phone] | + +---------+ + + XR Chest PA or AP (09/26/2011 5:30 AM PDT) + + | Specimen | + + | | + + + + + | Narrative | Performed At | + + + | Exam Performed Location: [facility] CHEST | MISCELANIOUS | | SINGLE VIEW CLINICAL INFORMATION: Respiratory distress and fever. | LAB | | COMPARISON: None. FINDINGS: Heart, lungs and vessels | | | normal. No pneumothorax, pleural effusion or adenopathy. No | | | significant bone abnormality. IMPRESSION: Negative chest. | | | S: SQ ([id number]) Signed by: TIM GIFFORD MD | | + + + + + | Procedure Note | + + | Sohan Pleitez Conversion - 01/06/2013 7:01 PM PDT Exam Performed Location: [facility] | | at [facility] SINGLE VIEWCLINICAL INFORMATION:Respiratory distress and | | fever.COMPARISON:None.FINDINGS:Heart, lungs and vessels normal. No pneumothorax, pleural | | effusionor adenopathy. No significant bone abnormality.IMPRESSION:Negative chest.S: SQ | | ([id number]) Signed by: TIM GIFFORD MD | |Respiratory distress and fever. | | | |COMPARISON: | |None. | | | |FINDINGS: | |Heart, lungs and vessels normal. No pneumothorax, pleural effusion | |or adenopathy. No significant bone abnormality. | | | |IMPRESSION: | |Negative chest. | | | | | |S: SQ ([id number]) Signed by: TIM GIFFORD MD | + + + +---------+ + + | Performing | Address | City/State/Zipcode | Phone Number | | Organization | | | | + +---------+ + + | [facility] | | | [phone] | + +---------+ + + | MISC[facility] | | | [phone] | + +---------+ + + Sedimentation Rate (09/26/2011 12:33 AM PDT) + +--------+ + + + | Component | Value | Ref Range | Performed | Pathologist | | | | | At | Signature | + +--------+ + + + | Erythrocyte | 83 (H) | 0 - 10 mm/h | [facility] | | | | | | [facility] | | | Sedimentati | | | HEART | | | on Rate | | | MEDICAL | | | | | | CENTER | | | | | | LABORATORY | | + +--------+ + + + + + | Specimen | + + | | + + + + + + + | Performing | Address | City/State/Zipcode | Phone Number | | Organization | | | | + + + + + | [facility] | [address] | [place] [address] | | | [facility] | | | | | LABORATORY | | | | + + + + + | [facility] | | | | | [facility] | | | | | LABORATORY | | | | + + + + + CBC with Manual Differential (09/26/2011 12:33 AM PDT) + + + + + + | Component | Value | Ref Range | Performed | Pathologist | | | | | At | Signature | + + + + + + | White Blood | 9.2 | 4.5 - 11.0 K/uL | [facility] | | | Cells | | | [facility] | | | | [facility] | | | | | | [facility] | | | | | | LABORATORY | | + + + + + + | Red Blood | 3.80 (L) | 4.50 - 5.30 | [facility] | | | Cells | | M/uL | [facility] | | | [facility] | [facility] | | | | | | [facility] | | | | | | LABORATORY | | + + + + + + | Hemoglobin | 11.9 (L) | 13.0 - 16.0 | [facility] | | | | | g/dL | [facility] | | | [facility] | | | | | | [facility] | | | | | | LABORATORY | | + + + + + + | Hematocrit | 35.2 (L) | 37.0 - 49.0 % | [facility] | | | [facility] | [facility] | | | | | [facility] | | | | | | LABORATORY | | + + + + + + | MCV | 92.7 | 78.0 - 98.0 fL | [facility] | | | | | [facility] | | [facility] | | | | | [facility] | | | | | | LABORATORY | | + + + + + + | MCH | 31.2 | 25.0 - 35.0 pg | [facility] | | | | [facility] | | | [facility] | | | | | | [facility] | | | | | | LABORATORY | | + + + + + + | MCHC | 33.7 | 31.0 - 37.0 | [facility] | | | | | g/dL | [facility] | | | [facility] | | | | | | [facility] | | | | | | LABORATORY | | + + + + + + | RDW-CV | 12.3 | 11.0 - 14.5 % | [facility] | | | | [facility] | | | | [facility] | | | | | | [facility] | | | | | | LABORATORY | | + + + + + + | Platelet | 327 | 150 - 450 K/uL | [facility] | | | Count | | | [facility] | [facility] | [facility] | | | | | | [facility] | | | | | | [facility] | | | | | | LABORATORY | | + + + + + + | % Segmented | 71.0 (H) | 30 - 70 % | [facility] | | | | | | [facility] | | | Neutrophils | | | [facility]ART | | | | | | MEDICAL | | | | | | CENTER | | | | | | LABORATORY | | + + + + + + | % Bands | 6.0 | 0 - 9 % | [facility] | | | | | | [facility] | | | | | | [facility]ENTER | | | | | | LABORATORY | | + + + + + + | % | 14.0 (L) | 20 - 40 % | [facility] | | | Lymphocytes | | | [facility] | | | | | | [facility] | | | | | | MEDICAL | | | | | | CENTER | | | | | | LABORATORY | | + + + + + + | % Variant | 1.0 | 0 - 6 % | [facility] | | | Lymphocytes | | | [facility] | | | | | | [facility] | | | | | | MEDICAL | | | | | | CENTER | | | | | | LABORATORY | | + + + + + + | % Monocytes | 3.0 | 0 - 10 % | [facility] | | [facility] | [facility] | | | | | | [facility]ICAL | | | | | | CENTER | | | | | | LABORATORY | | + + + + + + | % | 5.0 (H) | 0 - 4 % | [facility] | | | Eosinophils | | | [facility] | | | | | | HEART | | | | | | MEDICAL | | | | | | CENTER | | | | | | LABORATORY | | + + + + + + | Absolute | 6.53 | 1.50 - 7.00 | [facility] | | | Segmented | | K/uL | [facility] | | | Neutrophils | | | HEART | | | | | | MEDICAL | | | | | | CENTER | | | | | | LABORATORY | | + + + + + + | Absolute | 0.55 (H) | 0.00 - 0.24 | [facility] | | | Bands | | K/uL | [facility] | | | | | | HE[facility] | | | | | | MEDICAL | | | | | | CENTER | | | | | | LABORATORY | | + + + + + + | Absolute | 1.29 | 1.10 - 4.50 | [facility] | | | Lymphocytes | | K/uL | [facility] | | | | | | HEART | | | | | | MEDICAL | | | | | | CENTER | | | | | | LABORATORY | | + + + + + + | Absolute | 0.09 | K/uL | [facility] | | | Lymphocytes | | | [facility] | | | Variant | | | HEART | | | | | | MEDICAL | | | | | | CENTER | | | | | | LABORATORY | | + + + + + + | Absolute | 0.28 | 0.00 - 0.90 | [facility] | | | Monocytes | | K/uL | [facility] | | | | | | HE[facility] | | | | | | MEDICAL | | | | | | CENTER | | | | | | LABORATORY | | + + +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 CENTER | | | | | | LABORATORY | | + + + + + + | Total | 7.7 | 6.1 - 8.0 g/dL | [facility] | | | Protein | | | [facility] | | | | | | HEART | | | | | | MEDICAL | | | | | | CENTER | | | | | | LABORATORY | | + + + + + + | Albumin | 3.5 | 3.3 - 4.7 g/dL | [facility] | | | | | | [facility] | | | | | | HEART | | | | | | MEDICAL | | | | | | CENTER | | | | | | LABORATORY | | + + + + + + | Bilirubin | 0.6 | <2.0 mg/dL | [facility] | | | Total | | | [facility] | | | | | | HEART | | | | | | MEDICAL | | | | | | CENTER | | | | | | LABORATORY | | + + + + + + | Alkaline | 134 | 49 - 210 U/L | [facility] | | | Phosphatase | | | [facility]CR[facility] | | | | | | HEART | | | | | | MEDICAL | | | | | | CENTER | | | | | | LABORATORY | | + + + + + + | AST | 31 | 14 - 40 U/L | [facility] | | | | | | [facility] | | | | | | HEART | | | | | | MEDICAL | | | | | | CENTER | | | | | | LABORATORY | | + + + + + + | ALT | 33 | 10 - 65 U/L | [facility] | | | | | | [facility] | | | | | | HEART | | | | | | MEDICAL | | | | | | CENTER | | | | | | LABORATORY | | + + + + + + | Anion Gap | 10 | 5 - 16 mmol/L | [facility] | | | | | | [facility]CR[facility] | | | | | | HEART | | | | | | MEDICAL | | | | | | CENTER | | | | | | LABORATORY | | + + + + + + | Estimated | Cannot calculate. | >60 | [facility] | | | GFR | | ml/min/1.73m2 | [facility] | | | | | | HEART | | | | | | MEDICAL | | | | | | CENTER | | | | | | LABORATORY | | + + + + + + + + | Specimen | + + | | + + + + + + + | Performing | Address | City/State/Zipcode | Phone Number | | Organization | | | | + + + + + | [facility] | [address] | [place] [address] | | | [facility] | | | | | LABORATORY | | | | + + + + + | [facility] | | | | | [facility] | | | | | LABORATORY | | | | + + + + + documented in this encounter Visit Diagnoses Not on filedocumented in this encounter"
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
--- OUTSIDE RECORDS SUMMARY | ~2019-10-27 | XMS | Clinical Summary ---
Demographics + + + | Address | [address] | | | [place] [address] | + + + | Home Phone | | + + + | Preferred Language | Unknown | + + + | Marital Status | Single | + + + | Sikhism Affiliation | 1009 | + + + | Race | Unknown | + + + | Ethnic Group | Unknown | + + + Author + + + | Author | [facility] | | | and [place] | + + + | Organization | [facility] | | | [...] | | | | | [place] [address] | | + + + + + | Bogdan Arce | ECON | Unknown | | + + + + + Care Team Providers + +------+ + | Care Manufacturing Cost Estimator Name | Role | Phone | + +------+ + | Declan Linton MD | PCP | | + +------+ + Allergies No Active Allergies Medications + + + +---------+------+------+-------+ | Medication | Sig | Dispensed | Refills | Star | End | Statu | | | | | | t | Date | s | | | | | | Date | | | + + + +---------+------+------+-------+ | | Take by mouth. | | 0 | | | Activ | | Aspirin-Acetaminophe | | | | | | e | | n-Caffeine (EXCEDRIN | | | | | | | | MIGRAINE PO) | | | | | | | + + + +---------+------+------+-------+ | fluticasone | 1 spray by Each Nare | | 0 | 04/2 | | Activ | | (FLONASE) 50 | route daily for 10 | | | 1/20 | | e | | mcg/nasal spray | days. | | | 18 | | | + + + +---------+------+------+-------+ Active Problems + + + | Problem | Noted Date | + + + | Cervicogenic headache | 07/08/2011 | + + + + + | Overview: ICD-10 Record update | + + + + + | CONCUSSION WITH LOC OF UNSPECIFIED DURATION | 07/08/2011 | + + + + + | Overview: ICD-10 Record update | + + Social History + +-------+ +--------+------+ | Tobacco Use | Types | Packs/Day | Years | Date | | | | | Used | | + +-------+ +--------+------+ | Never Smoker | | | | | + +-------+ +--------+------+ + + + | Sex Assigned at | Date Recorded | | | | + + + | Not on file | | + + + Last Filed Vital Signs + + + + + | Vital Sign | Reading | Time Taken | Comments | + + + + + | Blood Pressure | 131/81 | 02/02/2018 9:10 AM | | | | | PST | | + + + + + | Pulse | 88 | 02/02/2018 9:10 AM | | | | | PST | | + + + + + | Temperature | 36.9 C (98.4 F) | 09/10/2017 12:47 AM | | | | | PDT | | + + + + + | Respiratory Rate | 16 | 09/10/2017 12:47 AM | | | | | PDT | | + + + + + | Oxygen Saturation | - | - | | + + + + + | Inhaled Oxygen | - | - | | | Concentration | | | | + + + + + | Weight | 97.9 kg (215 lb 14.4 | 02/02/2018 9:10 AM | | | | oz) | PST | | + + + + + | Height | 172.7 cm (5' 8") | 02/02/2018 9:10 AM | | | | | PST | | + + + + + | Body Mass Index | 32.83 | 02/02/2018 9:10 AM | | | | | PST | | + + + + + Plan of Treatment +--------+---------+ + + + | Date | Type | Specialty | Care Team | Description | +--------+---------+ + + + | 11/04/ | Office | Family Medicine | Davy Mosqueda, | | | 2020 | Visit | | SUTURE GAUGER [address] | | | | | [address] | | | | | | [place] | | | | | | [address] | | | | | | [phone] | | | | | | | | +--------+---------+ + + + | 12/01/ | Office | Pulmonology | Miguel Angel Mayer MD | | | 2020 | Visit | | [address] | | | | | | [place] | | | | | | [address] | | | | | | | | +--------+---------+ + + + + + +-------+ + | Health Maintenance | Due Date | Last | Comments | | | | Done | | + + +-------+ + | Hepatitis C | | | | | Screening | 6 | | | + + +-------+ + | Vaccine: | | | | | Dtap/Tdap/Td (1 - | 5 | | | | Tdap) | | | | + + +-------+ + | Vaccine: Influenza | | | | | (#1) | 0 | | | + + +-------+ + Results Not on filefrom Last 3 Months Insurance + +--------+ +--------+ +---------+------+ | Payer | Benefi | Subscriber | Effect | Phone | Address | Type | | | t Plan | ID | steven | | | | | | / | | Dates | | | | | | Group | | | | | | + +--------+ +--------+ +---------+------+ | [employer] | TRUSTM | [id number] | 03/17/19 | [phone] | | PPO | | | ARK | | 20-Pre | 2 | | | | | FIRST | | sent | | | | | | CHOICE | | | | | | + +--------+ +--------+ +---------+------+ + +--------+ +--------+ + + | Guarantor Name | Accoun | Relation to | Date | Phone | Billing Address | | | t Type | Patient | of | | | | | | | | | | + +--------+ +--------+ + + | Armin Arce | Person | Self | [birth year] | [address] | | | al/Fam | | 1994 | [phone] | [place] | | | [place] | | | [address] (Home) | [address] | + +--------+ +--------+ + + Advance Directives + + + + + | Type | Date Recorded | Patient | Explanation | | | | Rn Emergency | | + + + + + | Power of | | | | | New Vehicle Sales Consultant | | | | + + + + + | Advance | | | | | Directive | | | | + + + + +
--- OUTSIDE RECORDS SUMMARY | ~2019-10-27 | XMS | Encounter Summary ---
Demographics + + + | Address | [address] | | | [place] [address] | + + + | Home Phone | | + + + | Preferred Language | Unknown | + + + | Marital Status | Single | + + + | Hindu Affiliation | NON | + + + | Race | White | + + + | Ethnic Group | Not or | + + + Author + + + | Author | [facility] | + + + | Organization | [facility] | + + + | Address | Unknown | + + + | Phone | Unavailable | + + + Care Team Providers + +------+ + | Care Elevator Runner Name | Role | Phone | + +------+ + PCP | Unavailable | + +------+ + Encounter Details +--------+ + + + + | Date | Type | Department | Care Team | Description | +--------+ + + + + | 06/20/ | Results | NON-[facility] | Phillip Evans, | | | 2012 | Only | Department | MD [address] | | | | | [place] | | | | | | [address] | | | | | | [phone] | | | | | | | [...] recent travel history available. | + + documented as of this encounter Plan of Treatment Not on filedocumented as of this encounter Procedures + +--------+ + + + | Procedure Name | Priori | Date/Time | Associated Diagnosis | Comments | | | ty | | | | + +--------+ + + + | ANKLE 3 VIEW [id number] | Routin | 06/20/2012 | | Results for this | | | e | 5:43 PM | | procedure are in the | | | | PDT | | results section. | + +--------+ + + + documented in this encounter Results ANKLE 3 VIEW [id number] (06/20/2012 5:43 PM PDT) + + | Specimen | + + | | + + + + + | Narrative | Performed At | + + + | Exam: Right ankle, three views, pediatric. Indication: | [facility] | | 17-year-old male with softball injury, rolled ankle. Comparison: | DEPARTMENT OF | | No priors. Findings: AP, oblique and lateral films were obtained. | RADIOLOGY | | There is mild soft tissue swelling. There are no signs of | | | fracture, dislocation or talar dome osteochondral lesion. | | | Impression: No evidence of fracture. | | + + + + + | Procedure Note | + + | Interface, Radiology Results - 10/17/2014 5:39 PM PDT Exam: Right ankle, three | | views, pediatric.Indication: 17-year-old male with softball injury, rolled | | ankle.Comparison: No priors.Findings: AP, oblique and lateral films were obtained. | | There ismild soft tissue swelling. There are no signs of fracture,dislocation or talar | | dome osteochondral lesion.Impression: No evidence of fracture. | |dislocation or talar dome osteochondral lesion. | |Impression: No evidence of fracture. | + + + +---------+ + + | Performing | Address | City/State/Zipcode | Phone Number | | Organization | | | | + +---------+ + + | [facility] DEPARTMENT OF | | | | | RADIOLOGY | | | | + +---------+ + + documented in this encounter Visit Diagnoses Not on filedocumented in this encounter"
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
--- OUTSIDE RECORDS SUMMARY | ~2019-10-27 | XMS | Clinical Summary ---
Demographics + + + | Address | [address] | | | [place] [address] | + + + | Home Phone | | + + + | Preferred Language | Unknown | + + + | Marital Status | Single | + + + | Caodaism Affiliation | NON | + + + | Race | White | + + + | Ethnic Group | Not or | + + + Author + + + | Organization | Unknown | + + + | Address | Unknown | + + + | Phone | Unavailable | + + + Care Team Providers + +------+ + | Care Feather Separator Name | Role | Phone | + +------+ + PCP | Unavailable | + +------+ + Source Comments [facility] is fully live on both [facility] and [facility] Allergies Not on File Medications Not on [...]
--- OUTSIDE RECORDS SUMMARY | ~2019-10-27 | XMS | Encounter Summary ---
Demographics + + + | Address | [address] | | | [place] [address] | + + + | Home Phone | | + + + | Preferred Language | Unknown | + + + | Marital Status | Single | + + + | Mormon Affiliation | NON | + + + | Race | White | + + + | Ethnic Group | Not or | + + + Author + + + | Author | [facility] | + + + | Organization | [facility] | + + + | Address | Unknown | + + + | Phone | Unavailable | + + + Care Team Providers + +------+ + | Care Gas Pit Worker Name | Role | Phone | + [...] [place] | | | | | | [address] | | | | | | [phone] | | | | | | | [...] + + + | ANKLE 3 VIEW [address] | Routin | 06/20/2012 | | Results for this | | | e | 5:43 PM | | procedure are in the | | | | PDT | | results section. | + +--------+ + + + documented in this encounter Results ANKLE 3 VIEW [address] (06/20/2012 5:43 PM PDT) + + | [...]
--- OUTSIDE RECORDS SUMMARY | ~2019-10-27 | XMS | Encounter Summary ---
Demographics + + + | Address | [address] | | | [place] [address] | + + + | Home Phone | | + + + | Preferred Language | Unknown | + + + | Marital Status | Single | + + + | Mu-Ism Affiliation | 1009 | + + + | Race | Unknown | + + + | Ethnic Group | Unknown | + + + Author + + + | Author | [facility] | | | and [place] | + + + | Organization | [facility] | | | [...] | | | | | [place] [address] | | + + + + + | Bogdan Arce | ECON | Unknown | | + + + + + Care Team Providers + +------+ + | Care Switchboard Operator Name | Role | Phone | + +------+ + PCP | Unavailable | + +------+ + Encounter Details +--------+ + + + + | Date | Type | Department | Care Team | Description | +--------+ + + + + | 08/16/ | Emergency | [facility] | Jefry Carson, | Injury, Other and | | 2006 | | MEDICAL CENTER | MD [address] | Unspecified, Knee, | | | | EMERGENCY CENTER | [place] [address] | Leg, Ankle, and Foot | | | | [address] | [phone] | | | | | [place], [place] | | | | | | [address] | | | | | | [phone] | | | +--------+ + + + [...] | | 2019 | Visit | | [employer] ART[employer] [address] | | | | | | [address] | | | | | | [place] | | | | | | [address] | | | | | | [phone] | | | | | | | | +--------+---------+ + + + | 12/01/ | Office | Pulmonology | Miguel Angel Mayer MD | | | 2019 | Visit | | [address] | | | | | | [place] | | | | | | [address] | | | | | | | | +--------+---------+ + + + documented as of this encounter Visit Diagnoses + + | Diagnosis | + + | Injury, other and unspecified, knee, leg, ankle, and foot | + + documented in this encounter"
--- OUTSIDE RECORDS SUMMARY | ~2019-10-27 | XMS | Encounter Summary ---
Demographics + + + | Address | [address] | | | [place] [address] | + + + | Home Phone | | + + + | Preferred Language | Unknown | + + + | Marital Status | Single | + + + | Spiritism Affiliation | 1009 | + + + | Race | Unknown | + + + | Ethnic Group | Unknown | + + + Author + + + | Author | [facility] | | | and [place] | + + + | Organization | [facility] | | | [...] | | | | | [place] [address] | | + + + + + | Bogdan Arce | ECON | Unknown | | + + + + + Care Team Providers + +------+ + | Care Structural Steel Painter Name | Role | Phone | + +------+ + PCP | Unavailable | + +------+ + Encounter Details +--------+ + + + + | Date | Type | Department | Care Team | Description | +--------+ + + + + | 07/02/ | Hospital | [facility] | Conversion | | | 2011 | Encounter | [facility] | Transaction, | | | | | [address] | Provider Unknown | | | | | [place], [place] | | | | | | [address] | (Fax) | | | | | [phone] | | | +--------+ + + + [...] | | 2019 | Visit | | GRADUATE CIVIL ENGINEER [address] | | | | | | [address] | | | | | | [place] | | | | | | [address] | | | | | | [phone] | | | | | | | | +--------+---------+ + + + | 12/01/ | Office | Pulmonology | Miguel Angel Mayer MD | | | 2019 | Visit | | [address] | | | | | | [place] | | | | | | [phone] | | | | | | | | +--------+---------+ + + + documented as of this encounter Visit Diagnoses Not on filedocumented in this encounter"
--- OUTSIDE RECORDS SUMMARY | ~2019-10-27 | XMS | Encounter Summary ---
Demographics + + + | Address | [address] | | | [place] [address] | + + + | Home Phone | | + + + | Preferred Language | Unknown | + + + | Marital Status | Single | + + + | Jew Affiliation | 1009 | + + + | Race | Unknown | + + + | Ethnic Group | Unknown | + + + Author + + + | Author | [facility] | | | and [place] | + + + | Organization | [facility] | | | and [...] | | | | | [place] [address] | | + + + + + | Bogdan Arce | ECON | Unknown | | + + + + + Care Team Providers + +------+ + | Care Beater Machine Operator Name | Role | Phone | + +------+ + PCP | Unavailable | + +------+ + Encounter Details +--------+ + + + + | Date | Type | Department | Care Team | Description | +--------+ + + + + | 09/09/ | Emergency | [facility] | Goip Mcdermott, | Nonintractable | | 2018 - | | [facility] | MD David ROBIN | headache, | | | | [facility] | [place] [address] | unspecified | | 09/10/ | | [address] | [phone] | chronicity pattern, | | 2017 | | [place], [place] | | unspecified headache | | | | [address] | | type | | | | [phone] | | | +--------+ + + + [...] + + documented as of this encounter Medications at Time of Discharge [...] documented as of this encounter ED Notes Gopi Mcdermott MD - 09/10/2017 12:04 AM PDTFormatting of this note might be different fr om the original. ED Provider Notes by Gopi Mcdermott MD at 09/10/17 0004 Author: Gopi Mcdermott MD Service: Emergency Department Author Type: Physician Filed: 09/10/17 1502 Date of Service: 09/10/17 0004 Status: Signed Jet Worker: Gopi Mcdermott MD (Physician) [facility] Department of Emergency Medicine 12:08 AM History of Present Illness Patient Identification Armin Arce is a 22 y.o. male. Patient information was obtained from patient and friend. History/Exam limitations: none. Patient presented to the Emergency Department by: Car Chief Complaint Chief Complaint Patient presents with Neck Pain Headache Chief complaint: headache Location: posterior head Quality: "pressure and heavy feeling" Severity: mild to moderate Onset: 3-4 months ago Timing: episodic Modifying factors: bending his neck radiates pain to the neck and back Care prior to arrival: Excedrin migraine Associated symptoms: generalized tingling and nausea Denies: fever, fall/trauma, vomiting, dysphagia, photophobia, vision changes, cough, conges tion or any additional symptoms at this time. Context: 22 year old male presents to the ED following 3-4 months of episodic headaches. Th e patient reports he experienced similar symptoms during sinus infections in the past. He wa s treated for a sinus infection with antibiotics from his local clinic in [place] 3 weeks ago whi ch resolved a similar headache located in his anterior head. The patient also complains of t ingling throughout his body while laying flat. Additional complaints include some recent diane rrhea. Patient denies recent travel, camping, or bad food exposure. The patient has a family history of aneurysms. The patient had been seen here on 07/05/17 for the same complaint. A C TA of the head and neck was performed which showed an aberrant R subclavian artery and some L maxillary sinus disease, but no aneurysm or vascular lesion was seen. He had follow up a kahlil aleman in his home town in [place] and was given antibiotics for a sinus infection. The patien t states he has had no improvement. The patient presents now because he would like answers w hy he is having the headache. He states the headache is not severe, rather it is a more of a nuance dull ache to the back of his head that extends down into the posterior neck. He jose rafael es any neck stiffness. No trauma. PCP: Per Pt None Review of Systems Constitutional: Negative for fever, recent illness Eyes: Negative for vision changes, photophobia Nose: Negative for congestion Throat: Negative for sore throat or dysphagia CV: Negative for chest pain Resp: Negative for cakdxfxdv-gd-fbahgz or cough GI: Positive for nausea, diarrhea Negative for abdominal pain, vomiting : Negative for urinary problems, dysuria, frequency or hematuria Musculoskeletal: Negative for back pain, neck pain or extremity pain Neuro/Psych: Positive for headache (posterior head), occasional tingling (generalized, se condary to laying down) Negative for fall/trauma, weakness or numbness All other systems reviewed and negative except as noted. Past Medical History Diagnosis Date Asthma Allergy induced Concussion several Muscle tear Past Surgical History Procedure Laterality Date HUMERUS FRACTURE SURGERY Right Prior to Admission medications Medication Sig Start Date End Date Taking? Authorizing Provider Panulvk-Phjxlcghpwlkp-Plbsfoww (EXCEDRIN MIGRAINE PO) Take by mouth. Yes Historical Prov ider fluticasone (FLONASE) 50 MCG/ACT nasal 1 spray by Each Nare route daily for 10 days. 8 07/15/17 Gabbie Matt PA-C No Known Allergies Social History Social History [...] (09/05/00). History reviewed. No pertinent family history. Physical Exam BP 128/79 (BP Location: Right upper arm) | Pulse 76 | Temp 98.1 F (36.7 C) (Oral) | Resp 16 | Ht 1.727 m (5' 8") | Wt 91.4 kg (201 lb 8 oz) | SpO2 98% | BMI 30.64 kg/m Vital signs interpretation: elevated blood pressure, otherwise WNL Pulse Oximetry interpretation: Normal General: Alert, in no apparent distress Eyes: Normal inspection, non-icteric, non-injected, PERRL, EOMI, no nystagmus ENT: Ears normal, TMs normal, mastoid processes nontender No significant nasal mucosal inflammation, mild mucous stranding Sinuses nontender Pharynx normal Moist mucous membranes. No eryhtema, exudate, or lesions Neck: Normal inspection Supple, no lymphadenopathy, no nuchal rigidity, painless FROM Back: Normal inspection CV: Rate and rhythm normal No murmurs Respiratory: Bilaterally clear to auscultation No rales, wheezing or rhonchi Abdomen: Soft, non-distended, non-tender No masses, rebound or guarding Extremities: Non tender, no edema Skin: Color normal Warm and dry No rash Neuro: Alert, no AMS No gross motor/sensory deficits Medical Decision Making and Emergency Department Course ED Department Course Patient presents to ED with complaints of headache. The DDx includes migraine, tension head ache, cluster DELGADO, pseudotumor cerebri, vs other. I do not suspect a SAH, ICH, meningitis, or intracranial tumor. The recent CTA does not reveal any vascular lesion. It did, however, sh ow an aberrant R subclavian artery, of which is unclear is contributing to the patient's sym ptoms. The patient declined my offer for medications for symptomatic relief. He states he di d not come her for that, rather he came seeking answers. We reviewed his recent CTA. We disc ussed he may need a MRI (for which he had a normal MRI brain back on 07/03/11), but we do not have MRI available at our facility here and I do not feel he needs to be moved over to the main campus in [place] for an emergent MRI. As explained to the patient, if a MRI needs to be done, this can be arranged as an outpatient. He states he does not have a PCP. I encoura ged him to establish a PCP in his home town in [place], but will also refer him to a local cl inic here in [place]. Additionally, I will refer him to our on-call neurologist. He is david re that the neurology clinic may require a referral from a PCP rather than the ED. He again declines pain medication. We discussed the emergent signs and symptoms that would necessitat e a return to ED. All questions and concerns addressed. Patient is ready for discharge. Vitals: 09/09/17 2306 09/10/17 0046 BP: 128/79 130/81 BP Location: Right upper arm Left upper arm Pulse: 76 69 Resp: 16 16 Temp: 98.1 F (36.7 C) 98.4 F (36.9 C) TempSrc: Oral Oral SpO2: 98% 95% Weight: 91.4 kg (201 lb 8 oz) Height: 1.727 m (5' 8") Records Reviewed Old medical records. Nursing notes. Previous ED visits for similar and unrelated complaints. ED Diagnosis Final diagnosis Nonintractable headache, unspecified chronicity pattern, unspecified headache type Disposition: ED Disposition ED Disposition Condition Comment Discharge Stable Follow-up Information Follow up With Specialties Details Why Contact Info Primary Care in [place] Schedule an appointment as soon as possible for a visit [facility] MD Gerardo [address] [facility] [address] Quoc Avila MD Neurology or other neurologist [address] [facility] [address] [facility] Emergency Department in [place] Emergency Medicine If symptoms worsen [address] [facility] [address] Gopi Mcdermott MD Procedures Additional Documentation Procedures Attending Provider Note: IGopi MD personally performed the services described in this documentation, as scribed by Dai aGsca in my presence, and it is both accurate and complete. Chart Reviewed and Completed: 09/10/2017 3:01 PM Scribe: Robert Trivedi, scribing for and in the presence of Gopi Mcdermott MD. Signed by: Robert Pierre 09/10/2017 2:19 AM Gopi Mcdermott MD 09/10/17 1502 documented in this encounter Plan of Treatment +--------+---------+ + + + | Date | Type | Specialty | Care Team | Description | +--------+---------+ + + + | 11/04/ | Office | Family Medicine | Davy Mosqueda, | | | 2019 | Visit | | GENERAL OPHTHALMOLOGIST [address] | | | | | [address] | | | | | | [place] | | | | | | [address] | | | | | | [phone] | | | | | | | | +--------+---------+ + + + | 12/01/ | Office | Pulmonology | Miguel Angel Mayer MD | | | 2019 | Visit | | [address] | | | | | | [place] | | | | | | [phone] | | | | | | | | +--------+---------+ + + + documented as of this encounter Visit Diagnoses + + | Diagnosis | + + | Nonintractable headache, unspecified chronicity pattern, unspecified headache type | + + documented in this encounter
--- OUTSIDE RECORDS SUMMARY | ~2019-10-27 | XMS | Encounter Summary ---
Demographics + + + | Address | [address] | | | [place] [address] | + + + | Home Phone | | + + + | Preferred Language | Unknown | + + + | Marital Status | Single | + + + | Congregational Affiliation | 1009 | + + + | Race | Unknown | + + + | Ethnic Group | Unknown | + + + Author + + + | Author | [facility] | | | and [place] | + + + | Organization | [facility] | | | [...] | | | | | [place] [address] | | + + + + + | Bogdan Arce | ECON | Unknown | | + + + + + Care Team Providers + +------+ + | Care Business Transformation Analyst Name | Role | Phone | + +------+ + PCP | Unavailable | + +------+ + Encounter Details +--------+ + + + + | Date | Type | Department | Care Team | Description | +--------+ + + + + | 10/12/ | Orders Only | [facility] | Provider, | | | 2018 | | [facility] | MD [address] | | | | | [address] | [address] | | | | | [address] [place], [place] | [place] [address] | | | | | [address] | | | | | | [phone] | | | +--------+ + + + [...] | | 2019 | Visit | | [facility] [address] | | | | | | [address] | | | | | | [place] | | | | | | [address] | | | | | | [phone] | | | | | | | | +--------+---------+ + + + | 12/01/ | Office | Pulmonology | Miguel Angel Mayer MD | | | 2019 | Visit | | [address] | | | | | | [place] | | | | | | [phone] | | | | | | | | +--------+---------+ + + + documented as of this encounter Visit Diagnoses Not on filedocumented in this encounter"
--- OUTSIDE RECORDS SUMMARY | ~2019-10-27 | XMS | Encounter Summary ---
Demographics + + + | Address | [address] | | | [place] [address] | + + + | Home Phone | | + + + | Preferred Language | Unknown | + + + | Marital Status | Single | + + + | Muslim Affiliation | 1009 | + + + | Race | Unknown | + + + | Ethnic Group | Unknown | + + + Author + + + | Author | [facility] | | | and [place] | + + + | Organization | [facility] | | | [...] | | | | | [place] [address] | | + + + + + | Bogdan Arce | ECON | Unknown | | + + + + + Care Team Providers + +------+ + | Care Assistant Superintendent Name | Role | Phone | + +------+ + PCP | Unavailable | + +------+ + Encounter Details +--------+ + + + + | Date | Type | Department | Care Team | Description | +--------+ + + + + | 07/06/ | Hospital | [facility] | | | | 1998 | Encounter | [facility] | | | | | | [address] | | | | | | [place], [place] | | | | | | [address] | | | | | | [phone] | | | +--------+ + + + [...] | | 2019 | Visit | | [facility] [address] | | | | | | [address] | | | | | | [place] | | | | | | [address] | | | | | | [phone] | | | | | | | | +--------+---------+ + + + | 12/01/ | Office | Pulmonology | Miguel Angel Mayer MD | | | 2019 | Visit | | [facility] [place]note [facility] [address] | | | | | | [place] | | | | | | [address] | | | | | | | | +--------+---------+ + + + documented as of this encounter Visit Diagnoses Not on filedocumented in this encounter"
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
--- OUTSIDE RECORDS SUMMARY | ~2019-10-27 | XMS | Encounter Summary ---
Demographics + + + | Address | [address] | | | [place] [address] | + + + | Home Phone | | + + + | Preferred Language | Unknown | + + + | Marital Status | Single | + + + | [employer] Affiliation | 1009 | + + + | Race | Unknown | + + + | Ethnic Group | Unknown | + + + Author + + + | Author | [facility] | | | and [place] | + + + | Organization | [facility] | | | and [...] | | | | | [place] [address] | | + + + + + | Bogdan Arce | ECON | Unknown | | + + + + + Care Team Providers + +------+ + | Care Lab Tech Name | Role | Phone | + +------+ + PCP | Unavailable | + +------+ + Encounter Details +--------+ + + + + | Date | Type | Department | Care Team | Description | +--------+ + + + + | 04/14/ | Abstract | [facility] | DATA MIGRATION MARIANGEL | | | 2012 | | Conversion Location | SR | | | | | [address] [facility] | | | | | | [place], [place] | | | | | | [address] | | | | | | [phone] | | | +--------+ + + + [...] + + + | Blood Pressure | 111/64 | 07/08/2011 12:00 AM | | | | | PDT | | + + + + + | Pulse | - | - | | + + + + + | Temperature | - | - | | + + + + + | Respiratory Rate | - | - | | + + + + + | Oxygen Saturation | - | - | | + + + + + | Inhaled Oxygen | - | - | | | Concentration | | | | + + + + + | Weight | 64.4 kg (142 lb) | 07/08/2011 12:00 AM | | | | | PDT | | + + + + + | Height | 170.8 cm (5' 7.25") | 07/08/2011 12:00 AM | | | | | PDT | | + + + + + | Body Mass Index | 22.08 | 07/08/2011 12:00 AM | | | | | PDT | | + + + + + documented in this encounter Plan of Treatment +--------+---------+ + + + | Date | Type | Specialty | Care Team | Description | +--------+---------+ + + + | 11/04/ | Office | Family Medicine | Davy Mosqueda, | | | 2019 | Visit | | [place] [employer] [address] | | | | | [address] | | | | | | [place] | | | | | | [address] | | | | | | [phone] | | | | | | | | +--------+---------+ + + + | 12/01/ | Office | Pulmonology | Miguel Angel Mayer MD | | | 2019 | Visit | | [address] | | | | | | [place] | | | | | | [phone] | | | | | | | | +--------+---------+ + + + documented as of this encounter Visit Diagnoses Not on filedocumented in this encounter
--- NOTE | 2019-10-28 15:41 | EKG ---
[facility] [address] [facility] [place] [address] Signed Normal sinus rhythm Normal ECG No previous ECGs available Confirmed by EDEN ENGLISH MD ([id number]) on 10/28/2019 3:41:37 PM Electronically Signed By: EDEN ENGLISH MD 10/28/19 1541 PATIENT NAME: YIN SELLERS Electrocardiogram DATE OF : [birth year] PHYSICIAN: EDEN ENGLISH MD REPORT #: [id number] REPORT IS CONFIDENTIAL AND NOT TO BE RELEASED WITHOUT AUTHORIZATION
== END 2019-10-27 22:40 | disposition home or self-care (01) ==
LOC: ED 20:49
DX: R07.9 Chest pain, unspecified (principal)
CPT/HCPCS: 71045; 80053; 83735; 84443; 84484; 85025; 93005; 93010; 99285-25

== ENCOUNTER 2023-09-30 07:16 | Day surgery (SDC) | payer OTHER ==
[~2023-09-30] VITALS: Ht 172.7 cm; Wt 93.0 kg
[~2023-09-30 07:16] MED LIST: BUPROPION HCL150 MG PO; IBLOOD GLUCOSE TEST STRIP 1 EA TEST VI PRN; LACTATED RINGER'S 1,000 ML IV SCH; LIDOCAINE HCL 1% 5 ML SDV INJ ONE; MIDAZOLAM HCL 5 MG/5 ML VIAL IV PRN; fentaNYL citrate 100 MCG/2 ML VIAL IV PRN
[2023-09-30 07:37] VITALS: BP 131/84
[2023-09-30] MEDS ORDERED: MIDAZOLAM HCL 5 MG/5 ML VIAL ONE ×2 (08:07→08:34)
[2023-09-30] MEDS ORDERED: fentaNYL citrate 100 MCG/2 ML VIAL ONE (08:08)
--- NOTE | 2023-09-30 09:01 | NUR ---
09/30/23 0901 Shanon Crawford 0855-PATIENT ARRIVED TO PACU ON RA RR EVEN. PATIENT REACTIVE TO VERBAL STIMULI WHEN RN STATES NAME PATIENT HAS EYES CLOSED REPORTS "UH HUH" PATIENT VERY DROWSY. LAYING LEFT LATERAL. ABDOMEN SOFT. IVF INFUSING. 0900-PATIENT REACTIVE TO VERBAL STIMULI VERY DROWSY DENIES PAIN OR NAUSEA. ENCOURAGED TO PASS GAS. RA 95% RR EVEN. PATIENT DOZES BACK TO SLEEP.
[2023-09-30] MEDS ORDERED: ONDANSETRON 4 MG TAB ODT SL ONE (10:30)
[2023-09-30 10:45] VITALS: BP 114/78
--- NOTE | 2023-09-30 16:37 | OR ---
[facility] [address] [place], [place] [address] Signed DATE OF OPERATION: 09/30/2023 SURGEON: Olivia Kaufman MD PREOPERATIVE DIAGNOSES: 1. Lower abdominal pain. 2. Bloating. 3. Father with history of colonic polyps. POSTOPERATIVE DIAGNOSIS: Unremarkable colonoscopy. PROCEDURE: Colonoscopy with random cold biopsies in the terminal ileum, right colon, transverse colon, left colon, sigmoid colon and rectum. ESTIMATED BLOOD LOSS: None. INDICATIONS: Armin is a 28-year-old gentleman, asked to see me for a colonoscopy. He came to the office with his . 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 He has injured his body in multiple areas. He even had a staph infection in his back and down into his pelvis, which required his admission to [facility] when he was about 16 years old. He has a hugo still in his right humerus. He is now and has one child. The 2nd baby will be here in December. 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 He said it is very stressful. He has been trying to cut back on his eating and he has lost some weight. He thinks his stool is a little greasy and he is worried about lower abdominal pain and bloating. He went to his primary care provider. His blood work has been fine. His stool studies were fine. An ultrasound in January showed the common bile duct slightly enlarged at 6.5 mm. An MRI of his abdomen was done and this was unremarkable. He was therefore asked to see me as a local general surgeon to undergo colonoscopy with biopsies. He has been on the Internet reading and he thinks that has made his stress worse. He is very concerned that he might have Crohn's disease. He told me his father had colonic polyps removed. He is aware of irritable bowel syndrome, but is less convinced. He told me today that he stopped lactose products and he is feeling much better. In the office, I gave Armin and his a pamphlet on colonoscopy. We reviewed the nature of the test. There is risk including, but not limited to gas bloating, crampy abdominal pain, bleeding, perforation requiring surgery, and missed diagnosis. We also reviewed the written instructions for the bowel Electronically Signed By: OLIVIA KAUFMAN MD 09/30/23 1637 PATIENT NAME: ARMIN SELLERS OPERATIVE REPORT DATE OF : [birth year] REPORT #: [id number] PHYSICIAN: OLIVIA KAUFMAN MD PCP: LEO SCHWARTZ PA-C REPORT IS CONFIDENTIAL AND NOT TO BE RELEASED WITHOUT AUTHORIZATION [facility] [address] [place], [place] [address] Signed prep line by line. He is more than welcome to continue his usual medications including his bupropion. We also discussed the need for sedation. He wanted to proceed with our routine Versed and fentanyl. He is aware if this is not strong enough to sedate him, he might have to be rescheduled with monitored anesthesia care and propofol infusion. He had expressed understanding and wished to proceed. In addition, he specifically asked me not to share information with his that he would come back to the office and review things with me in a week. PROCEDURE IN DETAIL: Armin was taken into our endoscopy suite and placed in the left lateral decubitus position. He was given a total of 10 mg of Versed and 175 mcg of fentanyl. He is obviously very anxious and was moving around and it took a while to finally catch up and get him sedated. A digital rectal exam was performed and this was unremarkable. He has good sphincter tone. There is excellent perianal hygiene. No fistula tracts. No external hemorrhoids. No masses. The adult colonoscope had been introduced and advanced slowly up into the cecum itself. He was awake a couple of times, so we paused and gave him a little more medication and some mild abdominal compression until we ride into the cecum itself. His prep was quite good as would be expected for a young healthy person. We turned the camera and went up into the terminal ileum about 10 to 12 cm. It is also quite healthy. The scope was then slowly withdrawn. We took biopsies throughout the terminal ileum and colon as listed above. His entire colon was also quite healthy. The rectum was healthy. Upon retroflexion of the scope, there was no additional pathology noted above the anal canal. After this, the gas was suctioned out and the colonoscope removed. Armin tolerated the procedure quite well. RECOMMENDATIONS: I will see Armin back in my office in 7 to 14 days to review his biopsy results. He most likely has some level of irritable bowel syndrome and possibly some sensitivity to lactose products. Olivia Kaufman MD ALB/ROSALINAL /[id number] cc: YAIMA Yi Electronically Signed By: OLIVIA KAUFMAN MD 09/30/23 1637 PATIENT NAME: ARMIN SELLERS OPERATIVE REPORT DATE OF : [birth year] REPORT #: [id number] PHYSICIAN: OLIVIA KAUFMAN MD PCP: LEO SCHWARTZ PA-C REPORT IS CONFIDENTIAL AND NOT TO BE RELEASED WITHOUT AUTHORIZATION [address] [place], [place] [address] Signed Olivia Kaufman MD Copies: OLIVIA KAUFMAN MD ~ Electronically Signed By: OLIVIA KAUFMAN MD 09/30/23 1637 PATIENT NAME: ARMIN SELLERS OPERATIVE REPORT DATE OF : [birth year] REPORT #: [id number] PHYSICIAN: OLIVIA KAUFMAN MD PCP: LEO SCHWARTZ PA-C REPORT IS CONFIDENTIAL AND NOT TO BE RELEASED WITHOUT AUTHORIZATION
--- NOTE | 2023-10-07 15:33 | PATH ---
[facility] [address] [facility] [place], [place] [address] Signed SPECIMEN(S): A TERMINAL ILEUM BIOPSY SPECIMEN(S): B RIGHT COLON BIOPSY SPECIMEN(S): C TRANSVERSE BIOPSY SPECIMEN(S): D LEFT COLON BIOPSY SPECIMEN(S): E SIGMOID BIOPSY SPECIMEN(S): F RECTUM BIOPSY SPECIMEN SOURCE: A. TERMINAL ILEUM BIOPSY B. RIGHT COLON BIOPSY C. TRANSVERSE BIOPSY D. LEFT COLON BIOPSY E. SIGMOID BIOPSY F. RECTUM BIOPSY CLINICAL HISTORY: Abnormal stools; bloating; constipation. Unremarkable exam. FINAL PATHOLOGIC DIAGNOSIS: A. Terminal ileum biopsy: - Benign small bowel mucosa, negative for specific diagnostic abnormalities. B. Right colon biopsy: - Benign colonic mucosa, negative for specific diagnostic abnormalities. C. Transverse biopsy: - Benign colonic mucosa with focally increased epithelial lymphocytes. - See Comment. D. Left colon biopsy: - Benign colonic mucosa with focally increased epithelial lymphocytes. - See Comment. E. Sigmoid biopsy: - Benign colonic mucosa with reactive features and slightly increased epithelial lymphocytes (see Comment). F. Rectum biopsy: - Benign colonic mucosa, negative for specific diagnostic abnormality. COMMENT: The colon biopsies, particularly Specimens C and D, have focally slightly increased epithelial lymphocytes, suspicious but not definitie for lymphocytic colitis. Clinical correlation is requested. JVR:llc PATIENT NAME: YIN SELLERS PATHOLOGY DATE OF : [birth year] REPORT #: [id number] PHYSICIAN: NASIR PATHOLOGY PCP: LEO SCHWARTZ PA-C REPORT IS CONFIDENTIAL AND NOT TO BE RELEASED WITHOUT AUTHORIZATION [facility] [address] [place], [place] [address] Signed MICROSCOPIC EXAMINATION: Histologic sections of all submitted blocks are examined by light microscopy. These findings, together with the gross examination, support the pathologic diagnosis. GROSS DESCRIPTION: A. The specimen, labeled and designated "Yazmin, designated per requisition, terminal ileum biopsy," is received in formalin and consists of three fragments of soft glass tissue that are up to 0.6 cm in greatest dimension. Entirely submitted in (A1). B. The specimen, labeled and designated "Yazmin, designated per requisition, right colon biopsy," is received in formalin and consists of two fragments of soft glass tissue that are up to 0.4 cm in greatest dimension. Entirely submitted in (B1). C. The specimen, labeled and designated "Yazmin, designated per requisition transverse biopsy," is received in formalin and consists of three fragments of soft glass tissue that are up to 0.6 cm in greatest dimension. Entirely submitted in (C1). D. The specimen, labeled and designated "Yazmin, designated per requisition left colon biopsy," is received in formalin and consists of two fragments of soft glass tissue that are up to 0.4 cm in greatest dimension. Entirely submitted in (D1). E. The specimen, labeled and designated "Yazmin, designated per requisition, sigmoid colon biopsy," is received in formalin and consists of one fragment of soft glass tissue that is up to 0.6 cm in greatest dimension. Entirely submitted in (E1). F. The specimen, labeled and designated "Yazmin, designated per requisition rectum biopsy," is received in formalin and consists of one fragment of soft glass tissue that is up to 0.3 cm in greatest dimension. Entirely submitted in (F1). TW (under the direct supervision of a pathologist) The Gross Description was prepared using a voice recognition system. The report was reviewed for accuracy; however, sound-alike word errors, addition and/or deletions may occur. If there is any question about this report, please contact Client Services. ADDITIONAL NOTES: Immunohistochemical and/or in situ hybridization studies if performed in this case included appropriate positive controls that reacted as expected. This test was developed, and its performance characteristics determined by [facility]. It has not been cleared or PATIENT NAME: YIN SELLERS PATHOLOGY DATE OF : [birth year] REPORT #: [id number] PHYSICIAN: NASIR MARTINEZ PCP: LEO SCHWARTZ PA-C REPORT IS CONFIDENTIAL AND NOT TO BE RELEASED WITHOUT AUTHORIZATION [facility] [address] [place] [id number] Signed approved by the U.S. Food and Drug Administration. The FDA has determined that such clearance or approval is not necessary. This test is used for clinical purposes. It should not be regarded as investigational or for research. [facility] is certified under the Clinical Laboratory Improvement Amendments of 1988 (CLIA) as qualified to perform high complexity clinical laboratory testing. PERFORMING LABORATORY: Technical component was performed by [facility], [address] [place] [id number] (CLIA# [id number]). Professional interpretation was performed by [facility], [address] [place] [address] [place] [address] (CLIA#: [id number]). Diagnostician: Georgi López MD Pathologist Electronically Signed 10/07/2023 Copies: ~ PATIENT NAME: YIN SELLERS PATHOLOGY DATE OF : [birth year] REPORT #: [id number] PHYSICIAN: NASIR PATHOLOGY PCP: LEO SCHWARTZ PA-C REPORT IS CONFIDENTIAL AND NOT TO BE RELEASED WITHOUT AUTHORIZATION
== END 2023-09-30 10:45 | disposition home or self-care (01) ==
LOC: OPS 07:16 → DS 07:18 → OPS 08:15 → DS 08:15 → OPS 10:45
PROVIDERS: ATTEND Colon & Rectal Surgery
PROC: 0DBL8ZX Excision of Transverse Colon, Via Natural or Artificial Opening Endoscopic, Diagnostic (ICD-10-PCS; 2023-09-30)
PROC: 0DBN8ZX Excision of Sigmoid Colon, Via Natural or Artificial Opening Endoscopic, Diagnostic (ICD-10-PCS; 2023-09-30)
PROC: 0DBP8ZX Excision of Rectum, Via Natural or Artificial Opening Endoscopic, Diagnostic (ICD-10-PCS; 2023-09-30)
PROC: 0DBF8ZX Excision of Right Large Intestine, Via Natural or Artificial Opening Endoscopic, Diagnostic (ICD-10-PCS; 2023-09-30)
PROC: 0DBG8ZX Excision of Left Large Intestine, Via Natural or Artificial Opening Endoscopic, Diagnostic (ICD-10-PCS; 2023-09-30)
PROC: 0DBB8ZX Excision of Ileum, Via Natural or Artificial Opening Endoscopic, Diagnostic (ICD-10-PCS; principal; 2023-09-30 08:15)
DX: K63.89 Other specified diseases of intestine (principal); R14.0 Abdominal distension (gaseous); K59.00 Constipation, unspecified; Z83.719 Family history of colon polyps, unspecified
CPT/HCPCS: 99153; A9270; G0500; J2250; J3010; J7121